=== PATIENT | female | born 1955 | race Caucasian/White ===

== ENCOUNTER 2019-07-29 10:37 | Inpatient (IN) | payer MEDICARE ==
[~2019-07-29] VITALS: Ht 188 cm; Wt 80.9 kg
[~2019-07-29 10:37] MED LIST: ASPIRIN81 MG; BUSPIRONE HCL5 MG PO; DIVALPROEX SOD250 MG; GLIPIZIDE5 MG PO; ISOSORBIDE MONO20 MG PO; LEVEMIR100 UNIT/1; LEXAPRO10 MG PO; LISINOPRIL10 MG PO; LORAZEPAM2 MG/1 M1 PO; METFORMIN HCL500 MG PO; METOPROLOL TART25 MG PO; NOVOLOG100 UNIT/1; OMEPRAZOLE40 MG; PRAVASTATIN SOD20 MG; RANEXA500 MG PO
[2019-07-29] MEDS ORDERED: PANTOPRAZOLE 40 MG 10ML VIAL IV STA (10:40)
[2019-07-29] MEDS ORDERED: ONDANSETRON HCL INJ 2MG/ML 2ML 2 MG/ML VIAL IV STA (10:40)
[2019-07-29] MEDS ORDERED: DIATRIZOATE MEGL/DIATRIZOA SOD 30 ML BTL PO ONE (10:52)
[2019-07-29 11:21] LABS: BASOPHILS % 0.2 % (0.0-1.0); HEMATOCRIT 43.6 % (34.2-44.1); HEMOGLOBIN 14.3 g/dL (12.0-16.0); LYMPHOCYTES # (AUTO) 1.7 (1.0-3.2); LYMPHOCYTES % 11.7 % (18.0-39.1); MEAN CORPUSCULAR HGB CONC 32.8 g/dL (31-35); MEAN CORPUSCULAR VOLUME 88.4 fL (81-99); MONOCYTES # (AUTO) 0.7 (0.2-0.8); MONOCYTES % 4.8 % (4.4-11.3); NEUTROPHILS % 82.8 % (38.7-80.0); PLATELET COUNT 265 x10e3/uL (140-360); RED BLOOD COUNT 4.93 x10e6/uL (3.6-5.1); RED CELL DISTRIBUTION WIDTH 13.9 % (11.7-14.4)
[2019-07-29 11:31] LABS: INR 0.93
[2019-07-29 11:32] LABS: CLARITY,URINE CLEAR (CLEAR); COLOR,URINE YELLOW (YELLOW); LEUKOCYTE ESTERASE ,URINE NEGATIVE (NEGATIVE); NITRITE,URINE NEGATIVE (NEGATIVE); PARTIAL THROMBOPLASTIN TIME 24.8 seconds (23.8-35.5); PROTEIN,URINE DIPSTICK 1+ (NEGATIVE)
[2019-07-29 11:33] LABS: BACTERIA,URINE RARE /HPF; BILIRUBIN,URINE NEGATIVE (NEGATIVE); EPITHELIAL CELLS,URINE FEW /LPF; KETONES,URINE 2+ (NEGATIVE); URINE UROBILINOGEN 0.2 mg/dL (0.2 - 1)
[2019-07-29 11:39] LABS: ALANINE AMINOTRANSFERASE 25 IU/L (0-55); ALBUMIN 4.2 g/dL (3.5-5.0); ALBUMIN/GLOBULIN RATIO 1.2 (0.8-2.0); ALKALINE PHOSPHATASE 121 IU/L (40-150); AMYLASE 23 U/L (25-125); ANION GAP 21.6 mmol/L (8-16); BLOOD UREA NITROGEN 15 mg/dL (7-26); BUN/CREATININE RATIO 18 (6-25); CALCIUM 9.9 mg/dL (8.4-10.2); CARBON DIOXIDE 26 mmol/L (22-29); CHLORIDE 98 mmol/L (98-107); CREATINE KINASE 29 IU/L (29-168); CREATININE, SERUM 0.83 mg/dL (0.57-1.11); EST GLOMERULAR FILTRATION RATE > 60 ML/MIN (60-); LIPASE 4 U/L (8-78); MAGNESIUM 1.5 MG/DL (1.3-2.1); POTASSIUM 3.6 mmol/L (3.5-5.1); SODIUM 142 mmol/L (136-145)
[2019-07-29 11:43] LABS: GLUCOSE 413 mg/dL (74-118)
[2019-07-29] MEDS ORDERED: SODIUM CHLORIDE 0.9% 1000ML 1,000 ML ONE (11:50)
[2019-07-29] MEDS ORDERED: INSULIN REGULAR, HUMAN 100 UNIT/1 ML 3ML VIAL IV ONE (12:00)
[2019-07-29 12:39] LABS: CREATINE KINASE MB < 1.00 ng/mL (0-4.3)
--- NOTE | 2019-07-29 13:20 | Diagnostic Imaging Report ---
CT BRAIN WO HISTORY: Nausea and vomiting COMPARISON: CTA of the head/neck 06/12/2019; MRI of the brain 06/11/2019 Technique: Noncontrast axial scans were obtained from skull base to the vertex. Coronal and sagittal reconstructions obtained from the axial data. One or more of the following dose reduction techniques were used: Automated exposure control, adjustment of the mA and/or kV according to patient size, and/or utilization of iterative reconstruction technique. DISCUSSION: Scalp/Skull: Unremarkable. Brain sulci: Mildly prominent. Ventricles: Compensatory dilatation. Extra-axial spaces: No masses or fluid collections. Carotid siphon calcifications are present. Parenchyma: Mild bilateral deep white matter hypodensity is likely chronic microvascular ischemic change. Old left striatocapsular and right putaminal lacunar infarcts are present. Otherwise, no masses, hemorrhage, or large vascular territory acute infarct. Dural sinuses: No abnormal densities. Sellar/Suprasellar region: Intact. Skull base: Intact. Incidental findings: None. IMPRESSION: 1. No acute intracranial abnormalities. 2. Mild supratentorial chronic microvascular ischemic change. Mild generalized cerebral volume loss. 3. 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 Signed by: Dr. Singh Merchant M.D. on 07/29/2019 1:18 PM
--- NOTE | 2019-07-29 13:28 | Diagnostic Imaging Report ---
CT of the abdomen and pelvis, with contrast. History: Nausea and vomiting. Comparison: None available. Technique: Multidetector CT scanning of the abdomen and pelvis was performed from the level of the lung bases to the inferior pubic rami after intravenous and oral administration of contrast. Coronal and sagittal multiplanar reformations were obtained. RADIATION DOSE: Total DLP: 721.23 mGy*cm Dose modulation, iterative reconstruction, and/or weight based adjustment of the mA/kV was utilized to reduce the radiation dose to as low as reasonably achievable. FINDINGS: The visualized lungs are unremarkable. Atherosclerotic calcifications are noted within the visualized coronary arteries. The visual as portions of the heart is otherwise unremarkable. The liver is normal in size and attenuation without evidence for focal abnormality. The gallbladder is surgically absent. There is no biliary ductal dilatation. There is a small hiatal hernia present. The stomach is otherwise unremarkable. The spleen, pancreas, and bilateral adrenal glands are unremarkable. The kidneys are normal in size and location and enhance symmetrically. There is no evidence for hydronephrosis. No ureteral dilatation or stone is identified. Phleboliths are noted within the pelvis. The uterus is surgically absent. No abnormal adnexal masses are identified. The abdominal aorta is normal course and caliber with atherosclerotic calcifications. The IVC is unremarkable. Diverticula are noted within the sigmoid colon with associated mild wall thickening best appreciated on coronal images. The remaining visualized loops of small and large bowel demonstrate no evidence of obstruction or inflammation. The appendix is not definitively visualized but there is no evidence of inflammation within its expected location within the right lower quadrant. There is no ascites or intraperitoneal free air. No abnormally enlarged lymph nodes are identified within the abdomen or pelvis. There are mild degenerative changes of the lower lumbar spine. The osseous structures otherwise demonstrate no evidence for acute fracture or destructive process. The extraperitoneal soft tissues are unremarkable. IMPRESSION: Diverticula noted within the sigmoid colon with mild associated wall thickening. Findings may reflect sequela of prior diverticulitis. An early, uncomplicated acute diverticulitis could have a similar appearance. No other acute abdominopelvic process identified. Signed by: Dr. Mihai Salgado MD on 07/29/2019 1:25 PM
[2019-07-29] MEDS: HYDRALAZINE HCL 20 MG/ML VIAL IV PRN ×2 (13:56→18:35)
[2019-07-29] MEDS ORDERED: DEXTROSE 50% SYRINGE 50 ML IV PRN (14:00)
[2019-07-29] MEDS ORDERED: SODIUM CHLORIDE 0.9% 50ML 50 ML ONE (14:04)
[2019-07-29] MEDS ORDERED: IOPAMIDOL 370 MG/ML 200 ML INFUS..BTL INJ ONE (14:04)
[2019-07-29] MEDS: SODIUM CHLORIDE 0.9% 1000ML 1,000 ML IV SCH ×2 (14:10→22:18)
[2019-07-29] MEDS: METRONIDAZOLE 500MG/NS 100ML 100 ML IV SCH ×2 (14:10→21:10)
[2019-07-29] MEDS: CIPROFLOXACIN 400 MG/D5W 200ML 200 ML IV SCH (15:05)
[2019-07-29] MEDS: ONDANSETRON HCL INJ 2MG/ML 2ML 2 MG/ML VIAL IV PRN (15:42)
[2019-07-29] MEDS: INSULIN REGULAR, HUMAN 100 UNIT/1 ML 3ML VIAL SQ SCH ×2 (16:22→22:17)
--- NOTE | 2019-07-29 18:48 | NUR ---
patient just arrived to the floor, sbasr report received from dio MENDES, patient awake, alert, no distress noted
[2019-07-29 20:00] VITALS: BP 180/91
--- NOTE | 2019-07-29 20:00 | NUR ---
PATIENT UNABLE TO ANSWER ALL QUESTIONS FOR ADMISSION, JUST STARES AT ME WHEN QUESTIONS ASKED, STATES "CALL MY DAUGHTER SHE KNOWS", ATTEMPTED TO CALL DAUGHTER AT NUMBER LISTED EMERGENCY CONTACT, NO ANSWER, WILL RETRY, FULL ASSESSMENT COMPLETED, NO WOUNDS NOTED, SKIN INTACT , IV LEFT AC PATENT FLUSHES WELL, DENIES PAIN AT THIS TIME, ORIENTED TO STAFF AND POLICIES, CALL LIGHT WITHIN REACH, PT STATES SHE USES [facility] AT HOME FOR AMBULATION, WALKER AT BEDSIDE FOR SAFETY
[2019-07-29 20:30] VITALS: BP 180/91
[2019-07-29 21:00] VITALS: BP 180/91
[2019-07-30] VITALS (10 sets, daily range): BP systolic 123–176; BP diastolic 78–94
[2019-07-30] MEDS: METRONIDAZOLE 500MG/NS 100ML 100 ML IV SCH ×4 (01:18→20:11)
[2019-07-30] MEDS: CIPROFLOXACIN 400 MG/D5W 200ML 200 ML IV SCH ×2 (01:26→15:00)
--- NOTE | 2019-07-30 04:42 | NUR ---
eMAR UPDATED AND ACKNOWLEDGE WITH NEW MEDIATIONS PER MD SUNG
[2019-07-30] MEDS: SODIUM CHLORIDE 0.9% 1000ML 1,000 ML IV SCH ×2 (05:24→20:11)
[2019-07-30 05:48] LABS: BASOPHILS % 0.2 % (0.0-1.0); EOSINOPHILS % 0.2 % (0.0-6.0); HEMATOCRIT 38.4 % (34.2-44.1); HEMOGLOBIN 12.9 g/dL (12.0-16.0); LYMPHOCYTES # (AUTO) 3.2 (1.0-3.2); LYMPHOCYTES % 26.2 % (18.0-39.1); MEAN CORPUSCULAR HEMOGLOBIN 29.1 pg (28-32); MEAN CORPUSCULAR HGB CONC 33.6 g/dL (31-35); MEAN CORPUSCULAR VOLUME 86.7 fL (81-99); MONOCYTES # (AUTO) 1.1 (0.2-0.8); MONOCYTES % 8.9 % (4.4-11.3); NEUTROPHILS # (AUTO) 7.7 (2.1-6.9); PLATELET COUNT 240 x10e3/uL (140-360); RED BLOOD COUNT 4.43 x10e6/uL (3.6-5.1); RED CELL DISTRIBUTION WIDTH 14.1 % (11.7-14.4)
[2019-07-30 06:10] LABS: ANION GAP 13.8 mmol/L (8-16); BLOOD UREA NITROGEN 18 mg/dL (7-26); BUN/CREATININE RATIO 23 (6-25); CARBON DIOXIDE 26 mmol/L (22-29); CHLORIDE 104 mmol/L (98-107); CREATININE, SERUM 0.77 mg/dL (0.57-1.11); EST GLOMERULAR FILTRATION RATE > 60 ML/MIN (60-); GLUCOSE 156 mg/dL (74-118); SODIUM 141 mmol/L (136-145)
[2019-07-30 06:27] LABS: POTASSIUM 2.8 mmol/L (3.5-5.1)
--- NOTE | 2019-07-30 06:31 | NUR ---
LAB REPORTING POTASSIUM LEVEL 2.8, MD SUNG PAGED BY SERVICE REP OTTO, AWAITING ORDERS
--- NOTE | 2019-07-30 06:50 | NUR ---
REPORT GIVEN TO CINTHYA BETTENCOURT AT BEDSIDE, ADVISED OF CRITICAL LAB POTASSIUM 2.8, NOTIFIED THAT MD WAS NOTIFIED AND ORDERS WERE GIVEN AND CARRIED OUT, PATIENT SEEN SLEEPING NO DISTRESS CALL LIGHT WITHIN REACH
[2019-07-30] MEDS: INSULIN REGULAR, HUMAN 100 UNIT/1 ML 3ML VIAL SQ SCH ×4 (07:21→21:00)
[2019-07-30] MEDS: METFORMIN HCL 500 MG TAB PO SCH ×2 (07:59→16:58)
[2019-07-30] MEDS: PANTOPRAZOLE SOD 40 MG TABEC PO SCH (08:00)
[2019-07-30] MEDS: PRAVASTATIN 20 MG TAB PO SCH (08:00)
[2019-07-30] MEDS: ISOSORBIDE MONONITRATE 20 MG TAB PO SCH (08:00)
[2019-07-30] MEDS: METOPROLOL TARTRATE 25 MG TAB PO SCH ×2 (08:00→17:03)
[2019-07-30] MEDS ORDERED: POTASSIUM CHLORIDE 10MEQ EA PO ONE (09:00)
[2019-07-30] MEDS ORDERED: LISINOPRIL 10 MG TAB PO SCH (09:00)
[2019-07-30] MEDS: HYDRALAZINE HCL 20 MG/ML VIAL IV PRN (17:03)
--- NOTE | 2019-07-30 19:19 | NUR ---
BSSR RECEIVED FROM CINTHYA BETTENCOURT PATIENT AWAKE ALERT, REPORTED PT EXPERIENCE MULTIPLE EPISODES OF N/V, PRN IV MED GIVEN, NO NAUSEA NOTED AT SHIFT CHANGE, CALL LIGHT WITHIN REACH WILL CONTINUE TO MONITOR
[2019-07-30] MEDS: ONDANSETRON HCL INJ 2MG/ML 2ML 2 MG/ML VIAL IV PRN (20:11)
[2019-07-30] MEDS: DIVALPROEX SODIUM 250 MG TAB...DR PO SCH (21:00)
[2019-07-30] MEDS: BUSPIRONE HCL 5 MG TAB PO SCH (21:00)
[2019-07-30] MEDS: PROMETHAZINE 25MG/ NS 50ML (IV) IV PRN (22:32)
[2019-07-31] VITALS (9 sets, daily range): BP systolic 157–182; BP diastolic 74–104
[2019-07-31] MEDS: HYDRALAZINE HCL 20 MG/ML VIAL IV PRN ×2 (02:10→16:02)
[2019-07-31] MEDS: PROMETHAZINE 25MG/ NS 50ML (IV) IV PRN ×3 (02:17→13:29)
[2019-07-31] MEDS: METRONIDAZOLE 500MG/NS 100ML 100 ML IV SCH ×4 (03:04→20:47)
[2019-07-31] MEDS: CIPROFLOXACIN 400 MG/D5W 200ML 200 ML IV SCH (04:00)
[2019-07-31 05:12] LABS: BASOPHILS % 0.3 % (0.0-1.0); EOSINOPHILS % 0.1 % (0.0-6.0); HEMATOCRIT 40.9 % (34.2-44.1); HEMOGLOBIN 13.8 g/dL (12.0-16.0); LYMPHOCYTES # (AUTO) 2.3 (1.0-3.2); LYMPHOCYTES % 19.8 % (18.0-39.1); MEAN CORPUSCULAR HEMOGLOBIN 29.3 pg (28-32); MEAN CORPUSCULAR HGB CONC 33.7 g/dL (31-35); MEAN CORPUSCULAR VOLUME 86.8 fL (81-99); MONOCYTES # (AUTO) 0.9 (0.2-0.8); MONOCYTES % 7.5 % (4.4-11.3); NEUTROPHILS # (AUTO) 8.3 (2.1-6.9); NEUTROPHILS % 71.5 % (38.7-80.0); PLATELET COUNT 240 x10e3/uL (140-360); RED BLOOD COUNT 4.71 x10e6/uL (3.6-5.1); RED CELL DISTRIBUTION WIDTH 13.9 % (11.7-14.4)
--- NOTE | 2019-07-31 05:20 | Progress Note ---
DATE: 07/31/2019 SUBJECTIVE: The patient states her pain is doing better overall, but still having a lot of nausea and vomiting despite multiple changes in medication. OBJECTIVE: VITAL SIGNS: Temperature 97.4, pulse 91, blood pressure 179/96, and sats 97%. GENERAL: No apparent distress, lying in bed. NECK: Supple. CARDIOVASCULAR: Regular rate and rhythm. LUNGS: Clear to auscultation bilaterally. ABDOMEN: Good bowel sounds. Soft and nontender. No distention. No peritoneal signs. EXTREMITIES: No clubbing or cyanosis. NEUROLOGIC: Moves all extremities x4. ASSESSMENT AND PLAN: 1. Nausea and vomiting. We will continue with current care. We will go ahead and consult Gastroenterology for evaluation. 2. Diverticulitis. Continue with her antibiotics. 3. Urinary tract infection. Continue with antibiotics and wait for culture data to come back. 4. Hypertension. We will continue with current care and increase her lisinopril to 20 mg a day. 5. Hypokalemia. We will recheck blood tests. 6. Leukocytosis. We will recheck her lab tests. 7. Hyperlipidemia. Continue with her cholesterol medicine. 8. Diabetes. Continue with current care and monitoring. Please see hospital chart for full details. MD ALBA Downey/DELLA /[id number]
[2019-07-31 05:39] LABS: ALANINE AMINOTRANSFERASE 17 IU/L (0-55); ALBUMIN 3.6 g/dL (3.5-5.0); ALBUMIN/GLOBULIN RATIO 1.3 (0.8-2.0); ALKALINE PHOSPHATASE 74 IU/L (40-150); ANION GAP 17.5 mmol/L (8-16); BLOOD UREA NITROGEN 13 mg/dL (7-26); BUN/CREATININE RATIO 20 (6-25); CALCIUM 8.9 mg/dL (8.4-10.2); CARBON DIOXIDE 19 mmol/L (22-29); CHLORIDE 99 mmol/L (98-107); CREATININE, SERUM 0.65 mg/dL (0.57-1.11); EST GLOMERULAR FILTRATION RATE > 60 ML/MIN (60-); GLUCOSE 252 mg/dL (74-118); MAGNESIUM 1.3 MG/DL (1.3-2.1); POTASSIUM 3.5 mmol/L (3.5-5.1); SODIUM 132 mmol/L (136-145)
--- NOTE | 2019-07-31 06:45 | NUR ---
Spoke with answering service ( [employer]) regarding new consult for diverticulitis, nausea, vomiting Addendum: 07/31/19 at 0648 by Malinda Arizmendi RN Spoke with answering service for Dr Maradiaga ( Dr [place] state federal relations deputy director)
--- NOTE | 2019-07-31 07:15 | NUR ---
Bedside report and walking rounds completed with oncoming nurse. Patient stable and in bed, no issues or concerns noted. Call light within reaching.
[2019-07-31] MEDS: PRAVASTATIN 20 MG TAB PO SCH (08:31)
[2019-07-31] MEDS: SODIUM CHLORIDE 0.9% 1000ML 1,000 ML IV SCH ×2 (08:31→21:51)
[2019-07-31] MEDS: METOPROLOL TARTRATE 25 MG TAB PO SCH ×2 (08:32→16:17)
[2019-07-31] MEDS: METFORMIN HCL 500 MG TAB PO SCH ×2 (08:32→16:16)
[2019-07-31] MEDS: INSULIN REGULAR, HUMAN 100 UNIT/1 ML 3ML VIAL SQ SCH ×4 (08:32→20:58)
[2019-07-31] MEDS: ISOSORBIDE MONONITRATE 20 MG TAB PO SCH (08:32)
[2019-07-31] MEDS: LISINOPRIL 10 MG TAB PO SCH (08:41)
[2019-07-31] MEDS: PANTOPRAZOLE SOD 40 MG TABEC PO SCH (08:41)
--- NOTE | 2019-07-31 13:00 | NUR ---
Received patient from [facility], a/ox3, diverticulitis and c/o nausea, medicated with [place] per orders at this time and abx, IV line in place, call light within reach, safety maintained, will monitor.
[2019-07-31] MEDS: ACETAMINOPHEN 325 MG TAB PO PRN (16:42)
--- NOTE | 2019-07-31 17:56 | NUR ---
Patient with elevated BP, medicated as per orders, in bed, stable, IV fluids in place, tolerated GI soft diet, some nausea but not significant, call light within reach, will monitor.
--- NOTE | 2019-07-31 18:55 | NUR ---
WALKING ROUNDS PERFORMED, RECEIVED PT LAYING SEMI FOWLERS IN BED, AAOX3, RR EVEN AND NON-LABORED, ON ROOM AIR. PT REPORTS PAIN TO ANTERIOR ABD. LEFT PT LAYING SEMI FOWLERS IN BED, BED IN LOW LOCKED POSITION, SIDE RAILS UPX2, CALL LIGHT AND PHONE WITHIN REACH.
[2019-07-31] MEDS: DIVALPROEX SODIUM 250 MG TAB...DR PO SCH (20:49)
[2019-07-31] MEDS: BUSPIRONE HCL 5 MG TAB PO SCH (20:49)
[2019-07-31] MEDS: CIPROFLOXACIN 500 MG TAB PO SCH (20:49)
[2019-08-01] VITALS (8 sets, daily range): BP systolic 134–178; BP diastolic 77–93
--- NOTE | 2019-08-01 00:44 | Consultation ---
DATE OF CONSULTATION: 07/31/2019 GI Consult Note REASON FOR CONSULT: Acute sigmoid diverticulitis. HISTORY OF PRESENTING ILLNESS: 63-year-old very pleasant white female with past medical history of type 2 diabetes and hypertension, who got admitted with acute onset of left lower quadrant pain for last 3-4 days. In the emergency room, she was afebrile. Hemodynamically stable. CT scan of the abdomen with IV and oral contrast showed sigmoid diverticulitis with surrounding wall thickening consistent with acute diverticulitis. She was admitted to the floor. Currently getting IV fluid, IV antibiotics. The patient's white count, which was elevated to 14.50 on admission has come down to 11.52. The patient still continues to have some nausea without any vomiting. She is not feeling hungry. She is tolerating liquids. The patient is not sure if she has ever had attack of diverticulitis like this in the past. She could recall that she has had a colonoscopy more than 5 to 7 years ago. REVIEW OF SYSTEMS: Twelve point system reviewed, symptomatology is limited to GI system. PAST MEDICAL HISTORY: Type 2 diabetes, hypertension, and hyperlipidemia. PAST SURGICAL HISTORY: Colonoscopy and cholecystectomy. FAMILY HISTORY: Noncontributory. SOCIAL HISTORY: No smoking, alcohol, or any illicit drug use. ALLERGIES: CELECOXIB. HOME MEDICATIONS: Buspirone, divalproex, glipizide, insulin, isosorbide mononitrate, lisinopril, lorazepam, metformin, metoprolol, omeprazole, and pravastatin. INPATIENT MEDICATIONS: List reviewed. She is getting intravenous ciprofloxacin and metronidazole along with other supportive medications. PHYSICAL EXAMINATION: VITAL SIGNS: Temperature 98.6, pulse 91, respirations 18, blood pressure 168/95 to 182/104, and oxygen saturation 97% on room air. GENERAL: Not in any apparent distress. HEENT: Oral mucosa is moist. Anicteric sclerae. CVS: S1, S2 regular. LUNGS: Bilaterally grossly clear. ABDOMEN: Soft. Palpable left lower quadrant tenderness with some guarding without any rebound. No palpable mass or hernia. Positive bowel sounds. EXTREMITIES: Warm. Trace bilateral leg edema. LABORATORY DATA: WBC has come down to 11.52 from 14.50, hemoglobin 13.8, hematocrit 40.9, MCV 86.8, and platelet count 240. Sodium 132, potassium 3.5, chloride 99, bicarb 19, BUN 13, creatinine 0.65, and glucose 252. Liver enzymes normal. CT of the brain, no acute intracranial abnormalities. CT of the abdomen and pelvis with IV and oral contrast showed diverticula noted within the sigmoid colon with mild associated wall thickening. Finding may reflect sequelae of prior diverticulitis. An early uncomplicated acute diverticulitis could have similar appearance. IMPRESSION: Acute uncomplicated sigmoid diverticulitis. PLAN: Agree with present medical management of IV fluids, IV antibiotic. White count is slowly normalizing. Abdominal exam is still showing some left lower quadrant tenderness. Therefore, we will continue IV antibiotic for now. Switch to oral antibiotic once white count is normalized and abdominal tenderness is resolved. Continue low residue diet. The patient would need colonoscopy in next 2-3 months after complete resolution of diverticulitis. I thank Dr. Madrigal for allowing me to participate in the care of this patient. Jose Naranjo MD SA/DELLA /[id number]
[2019-08-01] MEDS: METRONIDAZOLE 500MG/NS 100ML 100 ML IV SCH ×4 (02:03→21:27)
[2019-08-01] MEDS: HYDRALAZINE HCL 20 MG/ML VIAL IV PRN ×2 (02:03→21:27)
[2019-08-01] MEDS: PROMETHAZINE 25MG/ NS 50ML (IV) IV PRN ×3 (03:30→17:49)
--- NOTE | 2019-08-01 07:00 | NUR ---
RECEIVED PATIENT ASLEEP NO S/S OF DISTRESS. BED LOW, WHEELS LOCKED, SIDE RAILS X2. CALL LIGHT IN REACH WILL CONTINUE TO MONITOR PATIENT.
[2019-08-01] MEDS: INSULIN REGULAR, HUMAN 100 UNIT/1 ML 3ML VIAL SQ SCH ×4 (07:30→21:30)
--- NOTE | 2019-08-01 07:40 | Progress Note ---
DATE: 08/01/2019 SUBJECTIVE: A 63-year-old female, who comes in with diverticulitis. The patient is currently feeling better. Nausea is still present, however, abdominal pain is present, still better. No chest pains. No shortness of breath. The patient has not been walking around. MEDICATIONS: Currently, the patient is taking as needed, BuSpar, ciprofloxacin, hydralazine as needed, insulin regular, metformin, metoprolol, Flagyl, and pantoprazole. OBJECTIVE: VITAL SIGNS: Temperature is 98.6, pulse of 100, respirations of 20, blood pressure is 134/91, pulse oximetry of 98% on room air. HEENT: Normocephalic and atraumatic. The patient is grimacing in pain. CVS: S1 and S2 normal. Regular rate and rhythm. ABDOMEN: Tender in the left lower quadrant. EXTREMITIES: No clubbing, no cyanosis, no edema. LABORATORY VALUES: White count is 11.52 yesterday, hemoglobin of 13, hematocrit of 40.9, no left shift present. Sodium is 132, potassium is 3.5, BUN of 13, creatinine 0.65, glucose has been running in the 230s. IMAGING: Brain CT showed old left striatocapsular and putaminal lacunar infarcts and abdominal CT shows diverticulitis or early diverticulitis. ASSESSMENT: Ms. Mcguire is a 63-year-old female with acute sigmoid diverticulitis. Additional diagnoses includes hypertension, hyperlipidemia, diabetes mellitus, uncontrolled, and hyponatremia. PLAN: Continue IV fluids. Continue IV antibiotics. White count is better. The patient will continue to be on IV antibiotics today and she is tolerating a soft GI diet. We will continue same. Check her BMP tomorrow. Further recommendation per clinical course. GI is following the patient. MD SAMANTA Babcock/IRISL /[id number]
[2019-08-01] MEDS: CIPROFLOXACIN 500 MG TAB PO SCH ×2 (08:59→21:27)
[2019-08-01] MEDS: PANTOPRAZOLE SOD 40 MG TABEC PO SCH (08:59)
[2019-08-01] MEDS: LISINOPRIL 10 MG TAB PO SCH (08:59)
[2019-08-01] MEDS: SODIUM CHLORIDE 0.9% 1000ML 1,000 ML IV SCH (08:59)
[2019-08-01] MEDS: METOPROLOL TARTRATE 25 MG TAB PO SCH ×2 (08:59→17:08)
[2019-08-01] MEDS: METFORMIN HCL 500 MG TAB PO SCH ×2 (08:59→17:08)
[2019-08-01] MEDS: ISOSORBIDE MONONITRATE 20 MG TAB PO SCH (08:59)
[2019-08-01] MEDS: PRAVASTATIN 20 MG TAB PO SCH (08:59)
[2019-08-01] MEDS: ACETAMINOPHEN 325 MG TAB PO PRN (09:05)
--- NOTE | 2019-08-01 11:15 | NUR ---
PATIENT A/O X3, EVEN RESPIRATIONS ON RA. NO SIGNS OF DISTRESS. DIAPER IN PLACE, PATIENT INCONTINENT. LEFT AC 20 GAUGE WITH NS @ 75 CC/HR. ABDOMINAL PAIN 10/10 THIS MORNING. PATIENT RECEIVED TYLENOL, PAIN 6/10 ON REASSESSMENT. PATIENT NEEDS ASSISTANCE WITH AMBULATION. CALL LIGHT IN REACH WILL CONTINUE TO MONITOR PATIENT.
--- NOTE | 2019-08-01 19:00 | NUR ---
Received patient from day nurse, patient is stable and in bed, safety and fall precautions maintained as per hospital protocol: bed in lowest position and locked, needed items close to patient, patient encouraged and instructed to call for help at all times, patient is currently stable, will continue to monitor.
[2019-08-01] MEDS: DIVALPROEX SODIUM 250 MG TAB...DR PO SCH (21:27)
[2019-08-01] MEDS: BUSPIRONE HCL 5 MG TAB PO SCH (21:27)
--- NOTE | 2019-08-01 22:08 | Progress Note ---
DATE: 08/01/2019 GI Progress Report SUBJECTIVE: The patient reports improvement in left lower abdominal pain. Tolerating GI soft diet. She has not had any bowel movement today. REVIEW OF SYSTEMS: GENERAL: No fever or chills. CVS: No chest pain or palpitation. RESPIRATORY: No cough or expectoration. MEDICATION: Metronidazole 500 mg IV every 8 hours, normal saline at 75 mL an hour, acetaminophen 650 mg p.o. every 6 hours as needed, buspirone 5 mg daily, ciprofloxacin 500 mg p.o. every 12 hours, dive, Depakote 250 mg at bedtime, hydralazine 10 mg IV every 4 hours p.r.n., insulin regular subcu per sliding scale. Isosorbide mononitrate 20 mg daily. Lisinopril 20 mg daily. Metformin 500 mg twice daily. Metoprolol 25 mg twice daily, Zofran 4 mg IV every 4 hours as needed, pantoprazole 40 mg daily, pravastatin 20 mg daily, promethazine 25 mg IV every 4 hours as needed. PHYSICAL EXAMINATION: VITAL SIGNS: Temperature 99, pulse 86, respirations 18, blood pressure 165/93, oxygen saturation 98% on room air. GENERAL: Not in any apparent distress. HEENT: Oral mucosa is moist. Anicteric sclerae. ABDOMEN: Soft, nondistended. Mild left lower quadrant tenderness without rebound, rigidity, or any guarding positive bowel sounds. LABORATORY DATA: White count has come down to 11.52 from 12.04, hemoglobin 13.8, hematocrit 40.9, platelet count 240. Sodium 132, potassium 3.5, chloride 99, bicarb 19, BUN 13, creatinine 0.65. Liver enzymes normal. IMPRESSION: Acute sigmoid diverticulitis without any local complication such as perforation or any abscess. PLAN: Continue antibiotic, low residue diet, monitor clinically. Supportive care. Jose Naranjo MD SA/DELLA /[id number]
[2019-08-02] VITALS (8 sets, daily range): BP systolic 110–180; BP diastolic 57–92
[2019-08-02] MEDS: SODIUM CHLORIDE 0.9% 1000ML 1,000 ML IV SCH ×2 (00:31→18:13)
[2019-08-02] MEDS: METRONIDAZOLE 500MG/NS 100ML 100 ML IV SCH ×4 (02:45→20:25)
[2019-08-02 05:44] LABS: BASOPHILS % 0.2 % (0.0-1.0); EOSINOPHILS # (AUTO) 0.1 (0.0-0.4); EOSINOPHILS % 0.5 % (0.0-6.0); HEMATOCRIT 40.2 % (34.2-44.1); HEMOGLOBIN 13.5 g/dL (12.0-16.0); LYMPHOCYTES # (AUTO) 3.5 (1.0-3.2); LYMPHOCYTES % 32.7 % (18.0-39.1); MEAN CORPUSCULAR HEMOGLOBIN 29.2 pg (28-32); MEAN CORPUSCULAR HGB CONC 33.6 g/dL (31-35); MONOCYTES % 9.3 % (4.4-11.3); NEUTROPHILS # (AUTO) 6.1 (2.1-6.9); NEUTROPHILS % 56.7 % (38.7-80.0); PLATELET COUNT 218 x10e3/uL (140-360); RED BLOOD COUNT 4.62 x10e6/uL (3.6-5.1); RED CELL DISTRIBUTION WIDTH 13.8 % (11.7-14.4)
[2019-08-02 06:08] LABS: ANION GAP 14.2 mmol/L (8-16); BLOOD UREA NITROGEN 11 mg/dL (7-26); BUN/CREATININE RATIO 17 (6-25); CALCIUM 8.6 mg/dL (8.4-10.2); CARBON DIOXIDE 23 mmol/L (22-29); CHLORIDE 104 mmol/L (98-107); CREATININE, SERUM 0.66 mg/dL (0.57-1.11); EST GLOMERULAR FILTRATION RATE > 60 ML/MIN (60-); GLUCOSE 149 mg/dL (74-118); POTASSIUM 3.2 mmol/L (3.5-5.1); SODIUM 138 mmol/L (136-145)
--- NOTE | 2019-08-02 06:50 | NUR ---
Received bedside shift report from off going nurse. Patient is in stable condition, no acute distress noted. Call light within reach. Bed in the lowest position.
--- NOTE | 2019-08-02 07:05 | NUR ---
Patient endorsed to next shift for continuity of care.
[2019-08-02] MEDS: PROMETHAZINE 25MG/ NS 50ML (IV) IV PRN ×2 (07:30→16:43)
[2019-08-02] MEDS ORDERED: POTASSIUM CHLORIDE 20 MEQ TAB CR PO STA (07:48)
[2019-08-02] MEDS: INSULIN REGULAR, HUMAN 100 UNIT/1 ML 3ML VIAL SQ SCH ×4 (08:30→20:34)
[2019-08-02] MEDS: CIPROFLOXACIN 500 MG TAB PO SCH ×2 (08:41→20:25)
[2019-08-02] MEDS: ISOSORBIDE MONONITRATE 20 MG TAB PO SCH (08:41)
[2019-08-02] MEDS: METFORMIN HCL 500 MG TAB PO SCH ×2 (08:41→16:20)
[2019-08-02] MEDS: PRAVASTATIN 20 MG TAB PO SCH (08:42)
[2019-08-02] MEDS: METOPROLOL TARTRATE 25 MG TAB PO SCH ×2 (08:42→16:21)
[2019-08-02] MEDS: PANTOPRAZOLE SOD 40 MG TABEC PO SCH (08:42)
[2019-08-02] MEDS: LISINOPRIL 10 MG TAB PO SCH (08:42)
[2019-08-02] MEDS: ACETAMINOPHEN 325 MG TAB PO PRN (08:42)
--- NOTE | 2019-08-02 10:59 | Progress Note ---
DATE: 08/02/2019 SUBJECTIVE: A 63-year-old female came in with acute diverticulitis, leukocytosis feeling better except for nausea, nausea continues. The patient is on pantoprazole and also on Zofran as needed. No chest pain. No shortness of breath. Abdominal pain is better. Has not been walker around. PHYSICAL EXAMINATION: VITAL SIGNS: Temperature is 98.2, T-max of 99.0 at 2100. Otherwise, pulse of 98, respirations of 18, blood pressure is 155/92, pulse oximetry of 98%. HEENT: Normocephalic and atraumatic. Pupils reactive. CVS: S1 and S2 normal. Regular rate and rhythm. ABDOMEN: Still tenderness present in the left lower quadrant minimized though. EXTREMITIES: No clubbing, no cyanosis, no edema. LABORATORY VALUES: White count is down to 10.82, potassium of 3.2. Microbiology, urine culture grew E coli. Currently, the patient is on Cipro and metronidazole and E coli and Streptococcus viridans sepsis sensitive to Cipro. Plan, continue medications. ASSESSMENT: 1. Diverticulitis. Continue same program with antibiotics. 2. Streptococcus viridans urinary tract infection. Continue with the current medication regimen. Further recommendation per clinical course. Continue with her home medications and also replace potassium today. MD SAMANTA Babcock/MODL /[id number]
--- NOTE | 2019-08-02 19:23 | NUR ---
Bedside shift report given to oncoming nurse. Patient is resting in bed, no acute distress noted. Call light within reach. Bed in the lowest position.
[2019-08-02] MEDS: BUSPIRONE HCL 5 MG TAB PO SCH (20:25)
[2019-08-02] MEDS: DIVALPROEX SODIUM 250 MG TAB...DR PO SCH (20:25)
--- NOTE | 2019-08-02 23:12 | Progress Note ---
DATE: 08/02/2019 GI Progress Report SUBJECTIVE: The patient reports improvement in abdominal pain. Tolerating oral diet. Complaining about some sore throat. REVIEW OF SYSTEMS: GENERAL: No fever or chills, admits to some weakness. CVS: No chest pain or palpitation. RESPIRATORY: Admits to some cough and sore throat. No expectoration. No shortness of breath. MEDICATIONS: Regular insulin as per sliding scale, ciprofloxacin 500 mg p.o. twice daily, Depakote 250 mg p.o. at bedtime, buspirone 5 mg p.o. daily, metronidazole 500 mg IV four times daily, normal saline at 75 mL an hour, metoprolol 25 mg twice daily, metformin 500 mg twice daily, lisinopril 20 mg daily, acetaminophen 650 mg p.o. q.6 hours as needed, pantoprazole 40 mg p.o. daily, isosorbide mononitrate 20 mg p.o. daily, hydralazine 10 mg IV q.4 hours as needed, and Zofran 4 mg IV q.4 hours as needed. OBJECTIVE: VITAL SIGNS: Temperature 97.9, pulse 83, respirations 16, blood pressure 119/57, oxygen saturation 95% on room air. GENERAL: Not in any acute distress. HEENT: Oral mucosa is moist. ABDOMEN: Soft. Mild. Left lower quadrant tenderness on deep palpation. No rebound, rigidity, or guarding. Positive bowel sounds. LABORATORY DATA: WBC has come down to 10.82 from 11.52, hemoglobin 13.5, hematocrit 40.2, and platelet count 218. Sodium 138, potassium 3.2, chloride 104, bicarb 23, BUN 11, creatinine 0.66. ASSESSMENT: 1. Acute left-sided diverticulitis, it is uncomplicated. She is responding very well with current antibiotic therapy. White count has also normalized. 2. Constipation. 3. Mild hypokalemia. 4. Sore throat. PLAN: Continue present antibiotic, IV fluids. Add bowel regimen for constipation. Replete potassium. We will defer the management of sore throat and cough to primary team. Jose Naranjo MD SA/DELLA /[id number]
[2019-08-03] VITALS (8 sets, daily range): BP systolic 123–171; BP diastolic 71–89
--- NOTE | 2019-08-03 00:54 | NUR ---
resting comfortably, resp unlabored call light in reach. will cont to monitor.
[2019-08-03] MEDS: METRONIDAZOLE 500MG/NS 100ML 100 ML IV SCH ×4 (02:05→20:00)
[2019-08-03] MEDS: SODIUM CHLORIDE 0.9% 1000ML 1,000 ML IV SCH (03:46)
[2019-08-03 05:55] LABS: BASOPHILS % 0.4 % (0.0-1.0); EOSINOPHILS # (AUTO) 0.1 (0.0-0.4); EOSINOPHILS % 0.9 % (0.0-6.0); HEMATOCRIT 36.9 % (34.2-44.1); LYMPHOCYTES # (AUTO) 3.2 (1.0-3.2); LYMPHOCYTES % 33.1 % (18.0-39.1); MEAN CORPUSCULAR HEMOGLOBIN 29.1 pg (28-32); MEAN CORPUSCULAR HGB CONC 32.5 g/dL (31-35); MEAN CORPUSCULAR VOLUME 89.6 fL (81-99); MONOCYTES % 9.8 % (4.4-11.3); NEUTROPHILS # (AUTO) 5.4 (2.1-6.9); NEUTROPHILS % 54.9 % (38.7-80.0); PLATELET COUNT 180 x10e3/uL (140-360); RED BLOOD COUNT 4.12 x10e6/uL (3.6-5.1); RED CELL DISTRIBUTION WIDTH 13.9 % (11.7-14.4)
[2019-08-03 06:18] LABS: ANION GAP 10.7 mmol/L (8-16); BLOOD UREA NITROGEN 11 mg/dL (7-26); BUN/CREATININE RATIO 18 (6-25); CARBON DIOXIDE 24 mmol/L (22-29); CHLORIDE 109 mmol/L (98-107); CREATININE, SERUM 0.62 mg/dL (0.57-1.11); EST GLOMERULAR FILTRATION RATE > 60 ML/MIN (60-); GLUCOSE 132 mg/dL (74-118); POTASSIUM 3.7 mmol/L (3.5-5.1); SODIUM 140 mmol/L (136-145)
--- NOTE | 2019-08-03 06:59 | NUR ---
Report given to oncoming Nurse, walking rounds complete. Pt stable at this time.
--- NOTE | 2019-08-03 07:00 | NUR ---
BEDSIDE SHIFT REPORT RECEIVED PT IN STABLE CONDITION, DENIES PAIN AT THIS TIME, UPDATED ON POC VOICED UNDERSTANDING, CALL LIGHT IN REACH WILL CONTINUE TO MONITOR
[2019-08-03] MEDS: INSULIN REGULAR, HUMAN 100 UNIT/1 ML 3ML VIAL SQ SCH ×4 (07:30→21:00)
[2019-08-03] MEDS: LISINOPRIL 10 MG TAB PO SCH (08:40)
[2019-08-03] MEDS: PRAVASTATIN 20 MG TAB PO SCH (08:40)
[2019-08-03] MEDS: PANTOPRAZOLE SOD 40 MG TABEC PO SCH (08:40)
[2019-08-03] MEDS: CIPROFLOXACIN 500 MG TAB PO SCH ×2 (08:40→21:00)
[2019-08-03] MEDS: ISOSORBIDE MONONITRATE 20 MG TAB PO SCH (08:41)
[2019-08-03] MEDS: METFORMIN HCL 500 MG TAB PO SCH ×2 (08:41→17:11)
[2019-08-03] MEDS: METOPROLOL TARTRATE 25 MG TAB PO SCH ×2 (08:42→17:12)
[2019-08-03] MEDS: POLYETHYLENE GLYCOL 3350 17 GM PACK PO SCH (08:42)
--- NOTE | 2019-08-03 09:49 | Progress Note ---
DATE: 08/03/2019 SUBJECTIVE: The patient is here for acute diverticulitis, sigmoid. The patient is feeling better. No chest pain. No shortness of breath. Bowel movements negative at this time, but pain is better. The patient is terribly weak, cannot move to the bathroom by herself, feels very weak and tired, and cannot make herself to go to the bathroom without help. OBJECTIVE: VITAL SIGNS: Temperature is 98, pulse of 99, and blood pressure is 171/89. HEENT: Normocephalic and atraumatic. Pupils are reactive to light and accommodation. CVS: S1 and S2 normal. Regular rate and rhythm. ABDOMEN: Slightly tender in left lower quadrant. EXTREMITIES: No clubbing, no cyanosis, no edema. LABORATORY VALUES: White count is normalized to 9.77. Chemistries all within normal limits. ASSESSMENT: Ms. Jamila Mcguire with: 1. Acute diverticulitis. 2. Leukocytosis. 3. Fatigue. 4. History of bipolar disease. 5. Hypertension. 6. Hyperlipidemia. 7. Diabetes mellitus. PLAN: Physical therapy today. The patient is better, can be discharged on home health. Continue with antibiotics, will be discharged on p.o. antibiotics. Further recommendation per clinical course and also depending on GI. MD SAMANTA Babcock/IRISL /[id number]
[2019-08-03] MEDS: ACETAMINOPHEN 325 MG TAB PO PRN (11:00)
[2019-08-03] MEDS: ONDANSETRON HCL INJ 2MG/ML 2ML 2 MG/ML VIAL IV PRN ×3 (13:25→22:33)
--- NOTE | 2019-08-03 19:05 | NUR ---
BEDSIDE REPORT RECEIVED,PT IN BED, IV INFUSING, TABLE WITHIN REACH, CALL LIGHT IN REACH, NO DISTRESS NOTED
--- NOTE | 2019-08-03 20:00 | NUR ---
INITIAL ASSESSMENT COMPLETE, PT IN BED, NO C/O PAIN AT THIS TIME, VS WNL, CALL LIGHT IN REACH, DR BECKER HERE TO SEE PT, PT TO GO HOME ON HOME HEALTH, NO OTHER NEEDS AT THIS TIME, WILL CONTINUE TO MONITOR
[2019-08-03] MEDS: BUSPIRONE HCL 5 MG TAB PO SCH (21:00)
[2019-08-03] MEDS: DIVALPROEX SODIUM 250 MG TAB...DR PO SCH (21:00)
--- NOTE | 2019-08-03 21:35 | NUR ---
PT UP FOR SHOWER AND LINEN CHANGE, INCONTINENT OF STOOL AND URINE, NEW DIAPER, SKIN INTACT, PT BACK TO BED, CALL LIGHT IN REACH, NO OTHER NEEDS, BED ALARM ON PT, VS WNL, WILL CONTINUE TO MONITOR
[2019-08-04 00:15] VITALS: BP 162/72
[2019-08-04] MEDS: METRONIDAZOLE 500MG/NS 100ML 100 ML IV SCH ×2 (01:57→08:00)
[2019-08-04 04:04] VITALS: BP 141/77
--- NOTE | 2019-08-04 04:20 | NUR ---
PT IN BED, ASLEEP, RESPIRATIONS EVEN AND UNLABORED, CALL LIGHT IN REACH, IV INFUSING, NO DISTRESS NOTED, VS WNL
--- NOTE | 2019-08-04 07:28 | NUR ---
Received patient and a/ox3, no distress, no c/o N/V and call light within reach, denies pains, will monitor.
[2019-08-04] MEDS: INSULIN REGULAR, HUMAN 100 UNIT/1 ML 3ML VIAL SQ SCH ×2 (07:30→11:30)
[2019-08-04 08:19] VITALS: BP 173/80
[2019-08-04] MEDS: CIPROFLOXACIN 500 MG TAB PO SCH (08:33)
[2019-08-04] MEDS: ISOSORBIDE MONONITRATE 20 MG TAB PO SCH (08:33)
[2019-08-04] MEDS: METFORMIN HCL 500 MG TAB PO SCH (08:33)
[2019-08-04] MEDS: PANTOPRAZOLE SOD 40 MG TABEC PO SCH (08:34)
[2019-08-04] MEDS: PRAVASTATIN 20 MG TAB PO SCH (08:34)
[2019-08-04] MEDS: METOPROLOL TARTRATE 25 MG TAB PO SCH (08:34)
[2019-08-04] MEDS: LISINOPRIL 10 MG TAB PO SCH (08:34)
[2019-08-04] MEDS: POLYETHYLENE GLYCOL 3350 17 GM PACK PO SCH (08:34)
--- NOTE | 2019-08-04 08:45 | Progress Note ---
DATE: 08/04/2019 SUBJECTIVE: The patient came with acute sigmoid diverticulitis, currently doing better. Nausea still persists, but is much better. No chest pain. No shortness of breath. Positive for bowel movement. OBJECTIVE: VITAL SIGNS: Temperature is 98.2, pulse of 97, respirations 20, blood pressure is 141/77. HEENT: Normocephalic, atraumatic. Pupils reactive. No icterus present. CVS: S1 and S2 normal. Regular rate and rhythm. ABDOMEN: Slight tenderness in the left lower quadrant. EXTREMITIES: No clubbing, no cyanosis, no edema. The patient is hard of hearing. LABORATORY VALUES: White count yesterday was 9.77, hemoglobin is stable and BUN and creatinine yesterday were 11 and 0.62. ASSESSMENT: Ms. Mcguire with: 1. Acute diverticulitis, resolving. 2. Leukocytosis, resolved. 3. Fatigue. 4. Debility. 5. Hypertension. 6. History of bipolar disease and diabetes mellitus. PLAN: Okay to discharge today if patient gets home health and we will put her on antibiotics on discharge, Cipro and Flagyl for 5 more days and also give her some Zofran as needed. Medicines will be reconciled on discharge. Further recommendation as an outpatient. For further information, look in the chart. MD SAMANTA Babcock/IRISL /[id number]
--- NOTE | 2019-08-04 09:30 | NUR ---
[facility] called and spoke to Belinda at [facility] and verified that pt is currently on service with them. Pt currently receiving SN, PT, OT, ST, and home health aid. DERECK informed enzo that pt is discharging today. Resumption order for home health faxed to [facility] at [phone] / P [phone].
[2019-08-04 09:50] VITALS: BP 173/80
[2019-08-04] MEDS ORDERED: CIPRO500 MG PO (10:13)
[2019-08-04] MEDS ORDERED: ZOFRAN8 MG PO (10:14)
[2019-08-04] MEDS ORDERED: FLAGYL250 MG PO (10:14)
--- NOTE | 2019-08-04 10:16 | NUR ---
Home health set up per CM note, prescriptions provided to patient, discharge summary and education provided, patient to f/u with GI and PCP, contacts provided. IV one removed and patient waiting for ride to merchandise pickup/receiving associate.
--- NOTE | 2019-08-04 12:48 | NUR ---
Spoke with Shine with [facility]. He confirmed that they received order and clinicals. Said they have pt scheduled to be seen tomorrow.
--- NOTE | 2019-08-15 13:42 | Discharge Summary ---
DISCHARGE DIAGNOSIS: 1. Diverticulitis. 2. Sepsis secondary to diverticulitis. 3. Leukocytosis. 4. Hypertension. 5. Diabetes. 6. Hyperlipidemia. 7. Acute toxic encephalopathy secondary to sepsis. HISTORY OF PRESENT ILLNESS AND HOSPITAL COURSE: See hospital chart for full details. The patient is a lady, who is 63-year-old, who presented with abdominal pain, slight confusion, leukocytosis of 14.5 thousand, where CT scan showed diverticulitis, so she was brought in, placed on IV antibiotics. She felt significantly better each day. Her encephalopathy improved and at the time of discharge, the patient was feeling well. She was able to be switched over to p.o. antibiotics and follow up in 1 to 2 weeks with her primary care physician. Please see hospital chart for full details. MD ALBA Downey/DELLA /[id number]
== END 2019-08-04 11:56 | disposition home or self-care (01) | DRG 871 ==
LOC: ER 10:38 → ERHOLD 13:51 → IMCU 19:03 → OBSVTOIN 07-31 11:47 → MED/SURG 07-31 12:49
PROVIDERS: ADMIT Internal Medicine; ATTEND Internal Medicine
DX: A41.9 Sepsis, unspecified organism (principal); G93.41 Metabolic encephalopathy; E87.1 Hypo-osmolality and hyponatremia; N39.0 Urinary tract infection, site not specified; K57.32 Diverticulitis of large intestine without perforation or abscess without bleeding; I10 Essential (primary) hypertension; E87.6 Hypokalemia; E78.5 Hyperlipidemia, unspecified; B95.5 Unspecified streptococcus as the cause of diseases classified elsewhere; J02.9 Acute pharyngitis, unspecified; F31.9 Bipolar disorder, unspecified; I16.0 Hypertensive urgency; E11.65 Type 2 diabetes mellitus with hyperglycemia
CPT/HCPCS: 36415; 70450; 74177; 80048; 80053; 81001; 82150; 82550; 82553; 82948; 83690; 83735; 84132; 84484; 85025; 85610; 85730; 87086; 87186; 99284; G0378; J0360; J1817; J2405; J2550; J7030; Q9967

== ENCOUNTER 2019-10-05 11:46 | Emergency (ER) | payer MEDICARE ==
[~2019-10-05] VITALS: Ht 340.4 cm; Wt 80.7 kg
[~2019-10-05 11:46] MED LIST changes: +CIPRO500 MG PO; +FLAGYL250 MG PO; +ZOFRAN8 MG PO
[2019-10-05 12:29] LABS: BASOPHILS % 0.3 % (0.0-1.0); EOSINOPHILS # (AUTO) 0.1 (0.0-0.4); EOSINOPHILS % 0.7 % (0.0-6.0); HEMATOCRIT 38.9 % (34.2-44.1); HEMOGLOBIN 12.8 g/dL (12.0-16.0); LYMPHOCYTES # (AUTO) 2.5 (1.0-3.2); MEAN CORPUSCULAR HGB CONC 32.9 g/dL (31-35); MEAN CORPUSCULAR VOLUME 88.2 fL (81-99); MONOCYTES # (AUTO) 0.6 (0.2-0.8); MONOCYTES % 7.9 % (4.4-11.3); NEUTROPHILS # (AUTO) 4.5 (2.1-6.9); NEUTROPHILS % 58.8 % (38.7-80.0); PLATELET COUNT 215 x10e3/uL (140-360); RED BLOOD COUNT 4.41 x10e6/uL (3.6-5.1); RED CELL DISTRIBUTION WIDTH 12.7 % (11.7-14.4)
[2019-10-05 12:58] LABS: ALANINE AMINOTRANSFERASE 15 IU/L (0-55); ALBUMIN 3.6 g/dL (3.5-5.0); ALBUMIN/GLOBULIN RATIO 1.2 (0.8-2.0); ALKALINE PHOSPHATASE 77 IU/L (40-150); BLOOD UREA NITROGEN 10 mg/dL (7-26); BUN/CREATININE RATIO 17 (6-25); CALCIUM 9.2 mg/dL (8.4-10.2); CARBON DIOXIDE 26 mmol/L (22-29); CHLORIDE 103 mmol/L (98-107); CREATINE KINASE 16 IU/L (29-168); EST GLOMERULAR FILTRATION RATE > 60 ML/MIN (60-); GLUCOSE 180 mg/dL (74-118); SODIUM 138 mmol/L (136-145)
[2019-10-05 13:08] LABS: CREATINE KINASE MB < 1.00 ng/mL (0-4.3)
[2019-10-05 14:05] LABS: CLARITY,URINE SL CLOUDY (CLEAR); COLOR,URINE YELLOW (YELLOW)
[2019-10-05 14:06] LABS: BILIRUBIN,URINE NEGATIVE (NEGATIVE); KETONES,URINE NEGATIVE (NEGATIVE); LEUKOCYTE ESTERASE ,URINE SMALL (NEGATIVE); NITRITE,URINE POSITIVE (NEGATIVE); PROTEIN,URINE DIPSTICK NEGATIVE (NEGATIVE); URINE UROBILINOGEN 0.2 mg/dL (0.2 - 1)
[2019-10-05 14:20] LABS: BACTERIA,URINE MANY /HPF; EPITHELIAL CELLS,URINE RARE /LPF
[2019-10-05] MEDS ORDERED: ACETAMIN/BUTALBITAL/CAFFEINE TAB PO ONE (14:30)
[2019-10-05] MEDS ORDERED: METOCLOPRAMIDE HCL 10 MG/2ML VIAL IV ONE (14:30)
[2019-10-05] MEDS ORDERED: DIPHENHYDRAMINE HCL INJ 50 MG/ML VIAL IV ONE (14:30)
[2019-10-05] MEDS ORDERED: IOPAMIDOL 370 MG/ML 200 ML INFUS..BTL INJ ONE (16:27)
[2019-10-05] MEDS ORDERED: SODIUM CHLORIDE 0.9% 50ML 50 ML ONE (16:27)
--- NOTE | 2019-10-05 17:06 | Diagnostic Imaging Report ---
History:Syncope, weakness, Comparison studies: Head CTs on 07/30 and 07/29/2019. Brain MRI on 06/11/2019 Cervical and intracranial CTAs on 06/12/2019 Technique: Axial images were obtained from the thoracic inlet. Coronal and sagittal images reconstructed from the axial data. Dose modulation, iterative reconstruction, and/or weight based adjustment of the mA/kV was utilized to reduce the radiation dose to as low as reasonably achievable. Intravenous contrast: 100 cc of Omnipaque 300. Findings: Preliminary noncontrast head CT: See impression Aortic arch and major vessels: Nonstenosing calcified plaques in the arch and at the origins of the left subclavian and common carotid arteries Common carotid arteries: Patent. No abnormalities. Carotid bulbs: Nonstenosing (0%) calcified plaques bilaterally. Otherwise, no abnormalities. Internal carotid arteries: Patent in the cervical region and at the skull base. Non stenosing bilateral calcifications in the carotid siphons. A1 and M1 segments: No abnormalities. No major branch vessel occlusions Vertebral arteries: Patent. No abnormalities from the origins to the junction with the basilar artery. Basilar artery: Patent. No abnormalities. Posterior cerebral arteries: Patent, no abnormalities. Anatomical variants: Acom: Patent . Pcoms: Patent. Vertebral arteries: Left dominant IMPRESSION: Preliminary noncontrast head CT: 1. No acute abnormalities. 2. No changes when compared to the head CT on 07/30 and 07/29/2019 with the MRI on 06/11/2019. Persistent chronic findings: * Mild generalized volume loss. * Mild supratentorial microvascular small vessel ischemic changes. * Left striatocapsular lacunar insult. Cervical and intracranial CTAs: 1. No major branch occlusion or hemodynamically significant stenosis. 2. Nonstenosing (0%) calcified plaques in the aortic arch, at the carotid bulbs or carotid siphons 3. Otherwise, no abnormalities. 4. No changes when compared to the cervical and intracranial CTA study on 06/12/2019. Signed by: Dr. Gaurav Bhatti M.D. on 10/05/2019 5:02 PM
[2019-10-05] MEDS ORDERED: FIORICET 50-301 EACH PO (17:24)
== END 2019-10-05 17:44 | disposition home or self-care (01) ==
LOC: ER 11:46
DX: R51 Headache (principal); R35.0 Frequency of micturition; I10 Essential (primary) hypertension; E11.9 Type 2 diabetes mellitus without complications; E78.5 Hyperlipidemia, unspecified; F41.9 Anxiety disorder, unspecified; Z86.73 Personal history of transient ischemic attack (TIA), and cerebral infarction without residual deficits; Z95.1 Presence of aortocoronary bypass graft
CPT/HCPCS: 36415; 70496; 70498; 80053; 81001; 82550; 82553; 84484; 85025; 87086; 87186; 93005; 99284; J1200; J2765; Q9967

== ENCOUNTER 2020-05-31 08:38 | Inpatient (IN) | payer MEDICARE ==
[~2020-05-31] VITALS: Ht 340.4 cm; Wt 78.3 kg
[~2020-05-31 08:38] MED LIST changes: -DIVALPROEX SOD250 MG; +DIVALPROEX SOD250 MG PO; +FIORICET 50-301 EACH PO; -PRAVASTATIN SOD20 MG; +PRAVASTATIN SOD20 MG PO
[2020-05-31 09:11] LABS: BASOPHILS % 0.4 % (0.0-1.0); EOSINOPHILS # (AUTO) 0.1 (0.0-0.4); EOSINOPHILS % 1.3 % (0.0-6.0); HEMATOCRIT 37.6 % (34.2-44.1); HEMOGLOBIN 12.1 g/dL (12.0-16.0); LYMPHOCYTES # (AUTO) 2.2 (1.0-3.2); LYMPHOCYTES % 28.6 % (18.0-39.1); MEAN CORPUSCULAR HEMOGLOBIN 28.1 pg (28-32); MEAN CORPUSCULAR HGB CONC 32.2 g/dL (31-35); MEAN CORPUSCULAR VOLUME 87.2 fL (81-99); MONOCYTES # (AUTO) 0.5 (0.2-0.8); MONOCYTES % 6.9 % (4.4-11.3); NEUTROPHILS # (AUTO) 4.9 (2.1-6.9); NEUTROPHILS % 62.4 % (38.7-80.0); PLATELET COUNT 207 x10e3/uL (140-360); RED BLOOD COUNT 4.31 x10e6/uL (3.6-5.1); RED CELL DISTRIBUTION WIDTH 14.2 % (11.7-14.4)
[2020-05-31] MEDS ORDERED: ASPIRIN 81 MG CHEW TAB PO ONE ×2 (09:15→10:00)
[2020-05-31 09:38] LABS: ALANINE AMINOTRANSFERASE 13 IU/L (0-55); ALBUMIN 3.6 g/dL (3.5-5.0); ALBUMIN/GLOBULIN RATIO 1.1 (0.8-2.0); ALKALINE PHOSPHATASE 76 IU/L (40-150); ANION GAP 16.1 mmol/L (8-16); BLOOD UREA NITROGEN 14 mg/dL (7-26); BUN/CREATININE RATIO 21 (6-25); CALCIUM 8.9 mg/dL (8.4-10.2); CARBON DIOXIDE 24 mmol/L (22-29); CHLORIDE 102 mmol/L (98-107); CREATINE KINASE 19 IU/L (29-168); CREATININE, SERUM 0.67 mg/dL (0.57-1.11); EST GLOMERULAR FILTRATION RATE > 60 ML/MIN (60-); GLUCOSE 231 mg/dL (74-118); POTASSIUM 4.1 mmol/L (3.5-5.1); SODIUM 138 mmol/L (136-145)
[2020-05-31 11:50] VITALS: BP 179/95
[2020-05-31 12:00] VITALS: BP 179/95
[2020-05-31] MEDS ORDERED: DIATRIZOATE MEGL/DIATRIZOA SOD 30 ML BTL PO ONE (15:36)
[2020-05-31 16:00] VITALS: BP 175/77
[2020-05-31] MEDS ORDERED: OMEPRAZOLE40 MG PO (18:16)
[2020-05-31] MEDS ORDERED: VITAMIN D350 MCG PO (18:16)
[2020-05-31] MEDS ORDERED: ULTRAM50 MG PO (18:16)
[2020-05-31] MEDS ORDERED: METFORMIN HCL500 MG PO (18:16)
[2020-05-31] MEDS ORDERED: GLIPIZIDE5 MG PO (18:16)
[2020-05-31] MEDS ORDERED: SYMBICORT 16010.2 GM INH (18:16)
[2020-05-31] MEDS ORDERED: VALSARTAN-HCTZ1 EAC1 PO (18:16)
[2020-05-31] MEDS ORDERED: GABAPENTIN300 MG PO (18:16)
[2020-05-31] MEDS ORDERED: AZO URINARY P99.5 MG PO (18:16)
[2020-05-31] MEDS: ACETAMINOPHEN 325 MG TAB PO PRN (18:21)
[2020-05-31] MEDS ORDERED: ACETAMIN/BUTALBITAL/CAFFEINE TAB PO PRN (18:30)
[2020-05-31] MEDS ORDERED: PHENAZOPYRIDINE HCL 100 MG TAB PO PRN (18:30)
[2020-05-31] MEDS ORDERED: NON-FORMULARY MEDICATION (Ondansetron Hcl (Zofran) 4 MG) PO SCH (18:30)
[2020-05-31 18:37] LABS: CREATINE KINASE MB 0.6 ng/mL (0-5.0)
[2020-05-31] MEDS: FAMOTIDINE 20 MG TAB PO SCH (19:55)
[2020-05-31 20:00] VITALS: BP 134/88
[2020-05-31 21:00] VITALS: BP 134/88
[2020-05-31] MEDS: GABAPENTIN 300 MG CAP PO SCH (21:15)
[2020-05-31] MEDS: DIVALPROEX SODIUM 250 MG TAB...DR PO SCH (21:15)
[2020-05-31] MEDS: PRAVASTATIN 20 MG TAB PO SCH (21:15)
[2020-05-31] MEDS: BUSPIRONE HCL 5 MG TAB PO SCH (21:15)
[2020-05-31] MEDS: METOPROLOL TARTRATE 25 MG TAB PO SCH (21:15)
[2020-05-31] MEDS: ONDANSETRON HCL INJ 2MG/ML 2ML 2 MG/ML VIAL IV PRN (22:02)
[2020-06-01] VITALS (8 sets, daily range): BP systolic 119–165; BP diastolic 60–79
[2020-06-01 03:42] LABS: BASOPHILS % 0.3 % (0.0-1.0); EOSINOPHILS # (AUTO) 0.1 (0.0-0.4); EOSINOPHILS % 1.1 % (0.0-6.0); HEMATOCRIT 37.3 % (34.2-44.1); HEMOGLOBIN 12.5 g/dL (12.0-16.0); LYMPHOCYTES # (AUTO) 2.6 (1.0-3.2); LYMPHOCYTES % 35.5 % (18.0-39.1); MEAN CORPUSCULAR HEMOGLOBIN 28.7 pg (28-32); MEAN CORPUSCULAR HGB CONC 33.5 g/dL (31-35); MEAN CORPUSCULAR VOLUME 85.7 fL (81-99); MONOCYTES # (AUTO) 0.5 (0.2-0.8); MONOCYTES % 6.9 % (4.4-11.3); NEUTROPHILS # (AUTO) 4.1 (2.1-6.9); NEUTROPHILS % 55.9 % (38.7-80.0); PLATELET COUNT 213 x10e3/uL (140-360); RED BLOOD COUNT 4.35 x10e6/uL (3.6-5.1); RED CELL DISTRIBUTION WIDTH 13.8 % (11.7-14.4)
[2020-06-01 04:00] LABS: ALANINE AMINOTRANSFERASE 14 IU/L (0-55); ALBUMIN 3.4 g/dL (3.5-5.0); ALBUMIN/GLOBULIN RATIO 1.1 (0.8-2.0); ALKALINE PHOSPHATASE 59 IU/L (40-150); CALCIUM 8.7 mg/dL (8.4-10.2); CARBON DIOXIDE 23 mmol/L (22-29); CHLORIDE 104 mmol/L (98-107); CHOLESTEROL 131 MD/DL (0-199); CREATININE, SERUM 0.59 mg/dL (0.57-1.11); EST GLOMERULAR FILTRATION RATE > 60 ML/MIN (60-); GLUCOSE 207 mg/dL (74-118); LIPASE 18 U/L (8-78); SODIUM 139 mmol/L (136-145); TRIGLYCERIDES 137 MG/DL (0-149)
[2020-06-01 04:09] LABS: BLOOD UREA NITROGEN 9 mg/dL (7-26); BUN/CREATININE RATIO 15 (6-25)
[2020-06-01 04:17] LABS: CHOL/HDL RATIO 3.7 (3.0-3.6); HDL CHOLESTEROL 35 MG/DL (40-60); LDL CHOLESTEROL 69 MG/DL (60-130)
[2020-06-01 04:20] LABS: THYROID STIMULATING HORMONE 1.856 uIU/mL (0.350-4.940)
[2020-06-01 04:21] LABS: CREATINE KINASE MB 0.7 ng/mL (0-5.0)
[2020-06-01] MEDS: BUDESONIDE/FORMOTEROL 160/4.5MCG INHALER INH SCH (06:00)
[2020-06-01] MEDS ORDERED: PANTOPRAZOLE SOD 40 MG TABEC PO SCH (07:30)
[2020-06-01] MEDS: GLIPIZIDE 5 MG TAB PO SCH (08:54)
[2020-06-01] MEDS: FAMOTIDINE 20 MG TAB PO SCH ×2 (08:54→17:50)
[2020-06-01] MEDS: METFORMIN HCL 500 MG TAB PO SCH ×2 (08:55→17:50)
[2020-06-01] MEDS: GABAPENTIN 300 MG CAP PO SCH ×2 (08:57→15:40)
[2020-06-01] MEDS: METOPROLOL TARTRATE 25 MG TAB PO SCH ×2 (08:57→17:00)
[2020-06-01] MEDS: ISOSORBIDE MONONITRATE 20 MG TAB PO SCH (08:57)
[2020-06-01] MEDS: CHOLECALCIFEROL 1,000 UNIT TAB PO SCH (08:59)
[2020-06-01] MEDS ORDERED: HYDROCHLOROTHIAZIDE 25 MG TAB PO SCH (09:00)
[2020-06-01] MEDS ORDERED: LISINOPRIL 10 MG TAB PO SCH (09:00)
[2020-06-01] MEDS ORDERED: VALSARTAN 160 MG TAB PO SCH (09:00)
[2020-06-01] MEDS ORDERED: TRAMADOL HCL 50 MG TAB PO SCH (09:00)
[2020-06-01] MEDS ORDERED: CHOLESTYRAMINE 4 GM PACKET PO ONE (16:15)
[2020-06-01] MEDS ORDERED: LOPERAMIDE HCL 2 MG CAP PO PRN (16:30)
[2020-06-01] MEDS: ONDANSETRON HCL INJ 2MG/ML 2ML 2 MG/ML VIAL IV PRN ×2 (17:20→21:37)
[2020-06-01] MEDS: TRAMADOL HCL 50 MG TAB PO PRN (17:40)
[2020-06-01] MEDS ORDERED: EMETROL PO (19:48)
[2020-06-01] MEDS ORDERED: VALSARTAN160 MG PO (19:50)
[2020-06-01] MEDS ORDERED: PEPTO-BISM525 MG/15 PO (19:50)
[2020-06-01] MEDS ORDERED: NITROGLYCERIN0.4 MG SL (19:52)
[2020-06-01] MEDS ORDERED: STOOL SOFTENER1 EACH PO (19:53)
[2020-06-01] MEDS ORDERED: GLUCOSE4 GM PO (19:58)
[2020-06-01] MEDS ORDERED: NYSTATIN15 GM TOP (19:58)
[2020-06-01] MEDS ORDERED: VITAMIN D310 MCG PO (19:58)
[2020-06-01] MEDS ORDERED: BENADRYL25 M1 PO (19:58)
[2020-06-01] MEDS ORDERED: ASPIRIN81 MG PO (19:58)
[2020-06-01] MEDS ORDERED: METOPROLOL SUCC25 MG PO (19:59)
[2020-06-01] MEDS: PRAVASTATIN 20 MG TAB PO SCH (21:04)
[2020-06-01] MEDS: DIVALPROEX SODIUM 250 MG TAB...DR PO SCH (21:04)
[2020-06-01] MEDS: BUSPIRONE HCL 5 MG TAB PO SCH (21:04)
[2020-06-02] VITALS (8 sets, daily range): BP systolic 126–173; BP diastolic 61–94
[2020-06-02 05:12] LABS: BASOPHILS % 0.2 % (0.0-1.0); EOSINOPHILS # (AUTO) 0.1 (0.0-0.4); EOSINOPHILS % 0.9 % (0.0-6.0); HEMATOCRIT 38.3 % (34.2-44.1); HEMOGLOBIN 12.5 g/dL (12.0-16.0); LYMPHOCYTES # (AUTO) 3.1 (1.0-3.2); LYMPHOCYTES % 26.9 % (18.0-39.1); MEAN CORPUSCULAR HGB CONC 32.6 g/dL (31-35); MEAN CORPUSCULAR VOLUME 85.9 fL (81-99); MONOCYTES % 8.5 % (4.4-11.3); NEUTROPHILS # (AUTO) 7.3 (2.1-6.9); NEUTROPHILS % 63.1 % (38.7-80.0); PLATELET COUNT 227 x10e3/uL (140-360); RED BLOOD COUNT 4.46 x10e6/uL (3.6-5.1); RED CELL DISTRIBUTION WIDTH 14.3 % (11.7-14.4)
[2020-06-02 05:35] LABS: ANION GAP 18.3 mmol/L (8-16); BLOOD UREA NITROGEN 11 mg/dL (7-26); BUN/CREATININE RATIO 15 (6-25); CARBON DIOXIDE 24 mmol/L (22-29); CHLORIDE 100 mmol/L (98-107); CREATININE, SERUM 0.72 mg/dL (0.57-1.11); EST GLOMERULAR FILTRATION RATE > 60 ML/MIN (60-); GLUCOSE 180 mg/dL (74-118); POTASSIUM 4.3 mmol/L (3.5-5.1); SODIUM 138 mmol/L (136-145)
[2020-06-02] MEDS: BUDESONIDE/FORMOTEROL 160/4.5MCG INHALER INH SCH (06:00)
[2020-06-02] MEDS: ONDANSETRON HCL INJ 2MG/ML 2ML 2 MG/ML VIAL IV PRN ×3 (06:14→20:38)
[2020-06-02] MEDS: GLIPIZIDE 5 MG TAB PO SCH (08:16)
[2020-06-02] MEDS: FAMOTIDINE 20 MG TAB PO SCH (08:17)
[2020-06-02] MEDS: METFORMIN HCL 500 MG TAB PO SCH (08:17)
[2020-06-02] MEDS: ISOSORBIDE MONONITRATE 20 MG TAB PO SCH (08:17)
[2020-06-02] MEDS: CHOLECALCIFEROL 1,000 UNIT TAB PO SCH (08:18)
[2020-06-02 13:06] LABS: CLARITY,URINE CLOUDY (CLEAR); COLOR,URINE YELLOW (YELLOW); KETONES,URINE 1+ (NEGATIVE); LEUKOCYTE ESTERASE ,URINE SMALL (NEGATIVE); NITRITE,URINE POSITIVE (NEGATIVE); PROTEIN,URINE DIPSTICK 2+ (NEGATIVE); URINE UROBILINOGEN 0.2 mg/dL (0.2 - 1)
[2020-06-02 13:35] LABS: RBC,URINE >50 /HPF (0-5); WBC,URINE (MAN) 21-50 /HPF (0-5)
[2020-06-02 13:36] LABS: BACTERIA,URINE MODERATE /HPF; EPITHELIAL CELLS,URINE RARE /LPF
[2020-06-02] MEDS ORDERED: SODIUM CHLORIDE 0.45% 1,000 ML IV ONE (14:15)
[2020-06-02] MEDS: METRONIDAZOLE 500MG/NS 100ML 100 ML IV SCH ×2 (14:19→21:21)
[2020-06-02] MEDS: CEFEPIME 1GM/NS 0.9% 50 ML 50 ML IV SCH ×2 (14:20→22:24)
[2020-06-02] MEDS: TRAMADOL HCL 50 MG TAB PO PRN ×3 (15:05→17:31)
[2020-06-02] MEDS: FAMOTIDINE 20 MG/2 ML VIAL IV SCH (17:28)
[2020-06-02] MEDS: HYDRALAZINE HCL 20 MG/ML VIAL IV PRN (20:33)
[2020-06-02] MEDS: ACETAMINOPHEN 325 MG TAB PO PRN (21:21)
[2020-06-02] MEDS: BUSPIRONE HCL 5 MG TAB PO SCH (21:21)
[2020-06-02] MEDS: DIVALPROEX SODIUM 250 MG TAB...DR PO SCH (21:21)
[2020-06-03] VITALS (7 sets, daily range): BP systolic 112–162; BP diastolic 65–99
[2020-06-03] MEDS: ONDANSETRON HCL INJ 2MG/ML 2ML 2 MG/ML VIAL IV PRN ×2 (02:13→08:05)
[2020-06-03] MEDS: HYDRALAZINE HCL 20 MG/ML VIAL IV PRN (04:51)
[2020-06-03 04:59] LABS: BASOPHILS % 0.2 % (0.0-1.0); EOSINOPHILS % 0.1 % (0.0-6.0); HEMATOCRIT 43.5 % (34.2-44.1); HEMOGLOBIN 14.2 g/dL (12.0-16.0); LYMPHOCYTES # (AUTO) 0.8 (1.0-3.2); LYMPHOCYTES % 6.2 % (18.0-39.1); MEAN CORPUSCULAR HEMOGLOBIN 28.1 pg (28-32); MEAN CORPUSCULAR HGB CONC 32.6 g/dL (31-35); MONOCYTES # (AUTO) 0.5 (0.2-0.8); MONOCYTES % 3.5 % (4.4-11.3); NEUTROPHILS # (AUTO) 12.1 (2.1-6.9); NEUTROPHILS % 89.3 % (38.7-80.0); PLATELET COUNT 230 x10e3/uL (140-360); RED BLOOD COUNT 5.06 x10e6/uL (3.6-5.1); RED CELL DISTRIBUTION WIDTH 14.2 % (11.7-14.4)
[2020-06-03 05:17] LABS: ANION GAP 25.4 mmol/L (8-16); BLOOD UREA NITROGEN 11 mg/dL (7-26); BUN/CREATININE RATIO 15 (6-25); CALCIUM 9.8 mg/dL (8.4-10.2); CARBON DIOXIDE 15 mmol/L (22-29); CHLORIDE 99 mmol/L (98-107); CREATININE, SERUM 0.75 mg/dL (0.57-1.11); EST GLOMERULAR FILTRATION RATE > 60 ML/MIN (60-); MAGNESIUM 1.4 MG/DL (1.3-2.1); POTASSIUM 4.4 mmol/L (3.5-5.1); SODIUM 135 mmol/L (136-145)
[2020-06-03] MEDS: BUDESONIDE/FORMOTEROL 160/4.5MCG INHALER INH SCH (05:22)
[2020-06-03 05:23] LABS: GLUCOSE 409 mg/dL (74-118)
[2020-06-03] MEDS ORDERED: INSULIN ASPART 70/30 100 UNITS/ML VIAL SC SCH (05:30)
[2020-06-03] MEDS: METRONIDAZOLE 500MG/NS 100ML 100 ML IV SCH ×2 (05:39→15:05)
[2020-06-03] MEDS: CEFEPIME 1GM/NS 0.9% 50 ML 50 ML IV SCH ×3 (06:09→20:11)
[2020-06-03] MEDS ORDERED: DEXTROSE 50% SYRINGE 50 ML IV PRN ×2 (08:00→12:45)
[2020-06-03] MEDS: GLIPIZIDE 5 MG TAB PO SCH (08:01)
[2020-06-03] MEDS: CHOLECALCIFEROL 1,000 UNIT TAB PO SCH (08:02)
[2020-06-03] MEDS: ISOSORBIDE MONONITRATE 20 MG TAB PO SCH (08:02)
[2020-06-03] MEDS: FAMOTIDINE 20 MG/2 ML VIAL IV SCH (08:04)
[2020-06-03] MEDS ORDERED: SODIUM CHLORIDE 0.9% 1000ML 1,000 ML IV ONE (10:30)
[2020-06-03] MEDS: METOPROLOL TARTRATE 25 MG TAB PO SCH ×2 (10:39→17:19)
[2020-06-03] MEDS ORDERED: INSULIN LISPRO 100 UNIT/1 ML 3ML VIAL SQ SCH (11:30)
[2020-06-03] MEDS ORDERED: INSULIN REGULAR, HUMAN 3ML VL 100 UNIT in SODIUM CHLORIDE 0.9% 100 ML 100 ML IV SCH ×2 (12:45)
[2020-06-03] MEDS: SODIUM CHLORIDE 0.9% 1000ML 1,000 ML IV SCH ×2 (15:04→20:11)
[2020-06-03] MEDS: PANTOPRAZOLE 40 MG 10ML VIAL IV SCH (17:16)
[2020-06-03] MEDS: INSULIN REGULAR, HUMAN 3ML VL 100 UNIT in SODIUM CHLORIDE 0.9% 100 ML 100 ML IV SCH ×6 (18:25→22:00)
[2020-06-03] MEDS: BUSPIRONE HCL 5 MG TAB PO SCH (20:10)
[2020-06-03] MEDS: DIVALPROEX SODIUM 250 MG TAB...DR PO SCH (20:11)
[2020-06-03] MEDS: TRAMADOL HCL 50 MG TAB PO PRN (20:11)
[2020-06-04] VITALS (8 sets, daily range): BP systolic 112–166; BP diastolic 56–88
[2020-06-04] MEDS: METRONIDAZOLE 500MG/NS 100ML 100 ML IV SCH ×3 (00:10→17:01)
[2020-06-04] MEDS: INSULIN REGULAR, HUMAN 3ML VL 100 UNIT in SODIUM CHLORIDE 0.9% 100 ML 100 ML IV SCH ×4 (04:18→17:50)
[2020-06-04] MEDS: CEFEPIME 1GM/NS 0.9% 50 ML 50 ML IV SCH ×3 (04:18→21:51)
[2020-06-04] MEDS: SODIUM CHLORIDE 0.9% 1000ML 1,000 ML IV SCH ×2 (04:26→14:03)
[2020-06-04 04:39] LABS: BASOPHILS % 0.2 % (0.0-1.0); EOSINOPHILS % 0.1 % (0.0-6.0); HEMATOCRIT 36.2 % (34.2-44.1); HEMOGLOBIN 11.8 g/dL (12.0-16.0); LYMPHOCYTES # (AUTO) 2.5 (1.0-3.2); LYMPHOCYTES % 18.3 % (18.0-39.1); MEAN CORPUSCULAR HEMOGLOBIN 27.9 pg (28-32); MEAN CORPUSCULAR HGB CONC 32.6 g/dL (31-35); MEAN CORPUSCULAR VOLUME 85.6 fL (81-99); MONOCYTES # (AUTO) 1.3 (0.2-0.8); MONOCYTES % 9.3 % (4.4-11.3); NEUTROPHILS # (AUTO) 9.8 (2.1-6.9); NEUTROPHILS % 71.5 % (38.7-80.0); PLATELET COUNT 247 x10e3/uL (140-360); RED BLOOD COUNT 4.23 x10e6/uL (3.6-5.1); RED CELL DISTRIBUTION WIDTH 14.7 % (11.7-14.4)
[2020-06-04 05:05] LABS: ALANINE AMINOTRANSFERASE < 6 IU/L (0-55); ALBUMIN 3.1 g/dL (3.5-5.0); ALKALINE PHOSPHATASE 55 IU/L (40-150); ANION GAP 12.6 mmol/L (8-16); BLOOD UREA NITROGEN 21 mg/dL (7-26); BUN/CREATININE RATIO 32 (6-25); CALCIUM 8.9 mg/dL (8.4-10.2); CARBON DIOXIDE 24 mmol/L (22-29); CHLORIDE 108 mmol/L (98-107); CREATININE, SERUM 0.66 mg/dL (0.57-1.11); EST GLOMERULAR FILTRATION RATE > 60 ML/MIN (60-); GLUCOSE 83 mg/dL (74-118); POTASSIUM 3.6 mmol/L (3.5-5.1); SODIUM 141 mmol/L (136-145)
[2020-06-04] MEDS: BUDESONIDE/FORMOTEROL 160/4.5MCG INHALER INH SCH (06:00)
[2020-06-04] MEDS: CHOLECALCIFEROL 1,000 UNIT TAB PO SCH (08:02)
[2020-06-04] MEDS: ISOSORBIDE MONONITRATE 20 MG TAB PO SCH (08:02)
[2020-06-04] MEDS: PANTOPRAZOLE 40 MG 10ML VIAL IV SCH ×2 (08:02→16:27)
[2020-06-04] MEDS: METOPROLOL TARTRATE 25 MG TAB PO SCH ×2 (08:02→16:38)
[2020-06-04] MEDS: TRAMADOL HCL 50 MG TAB PO PRN ×2 (14:03→21:01)
[2020-06-04] MEDS: DIVALPROEX SODIUM 250 MG TAB...DR PO SCH (20:41)
[2020-06-04] MEDS: BUSPIRONE HCL 5 MG TAB PO SCH (20:41)
[2020-06-04] MEDS: MELATONIN 5 MG TABLET PO SCH (20:41)
[2020-06-04] MEDS: ONDANSETRON HCL INJ 2MG/ML 2ML 2 MG/ML VIAL IV PRN (21:01)
[2020-06-05] VITALS (7 sets, daily range): BP systolic 116–170; BP diastolic 64–84
[2020-06-05] MEDS: SODIUM CHLORIDE 0.9% 1000ML 1,000 ML IV SCH ×2 (00:22→09:50)
[2020-06-05] MEDS: METRONIDAZOLE 500MG/NS 100ML 100 ML IV SCH ×2 (01:38→09:50)
[2020-06-05] MEDS: ONDANSETRON HCL INJ 2MG/ML 2ML 2 MG/ML VIAL IV PRN ×3 (02:21→21:50)
[2020-06-05] MEDS: HYDRALAZINE HCL 20 MG/ML VIAL IV PRN (02:51)
[2020-06-05] MEDS: CEFEPIME 1GM/NS 0.9% 50 ML 50 ML IV SCH ×3 (05:50→21:50)
[2020-06-05] MEDS: BUDESONIDE/FORMOTEROL 160/4.5MCG INHALER INH SCH (06:00)
[2020-06-05 06:14] LABS: BASOPHILS % 0.1 % (0.0-1.0); EOSINOPHILS % 0.4 % (0.0-6.0); HEMATOCRIT 35.7 % (34.2-44.1); HEMOGLOBIN 11.6 g/dL (12.0-16.0); MEAN CORPUSCULAR HEMOGLOBIN 27.8 pg (28-32); MEAN CORPUSCULAR HGB CONC 32.5 g/dL (31-35); MEAN CORPUSCULAR VOLUME 85.6 fL (81-99); MONOCYTES # (AUTO) 0.7 (0.2-0.8); MONOCYTES % 8.3 % (4.4-11.3); NEUTROPHILS # (AUTO) 5.5 (2.1-6.9); NEUTROPHILS % 66.6 % (38.7-80.0); PLATELET COUNT 204 x10e3/uL (140-360); RED BLOOD COUNT 4.17 x10e6/uL (3.6-5.1); RED CELL DISTRIBUTION WIDTH 14.5 % (11.7-14.4)
[2020-06-05 06:45] LABS: ALANINE AMINOTRANSFERASE 8 IU/L (0-55); ALKALINE PHOSPHATASE 52 IU/L (40-150); ANION GAP 15.1 mmol/L (8-16); BLOOD UREA NITROGEN 11 mg/dL (7-26); BUN/CREATININE RATIO 21 (6-25); CALCIUM 8.2 mg/dL (8.4-10.2); CARBON DIOXIDE 22 mmol/L (22-29); CHLORIDE 105 mmol/L (98-107); CREATININE, SERUM 0.53 mg/dL (0.57-1.11); EST GLOMERULAR FILTRATION RATE > 60 ML/MIN (60-); GLUCOSE 109 mg/dL (74-118); POTASSIUM 3.1 mmol/L (3.5-5.1); SODIUM 139 mmol/L (136-145)
[2020-06-05] MEDS ORDERED: POTASSIUM CHLORIDE 20MEQ/100ML 100 ML IV ONE (07:00)
[2020-06-05] MEDS: VALSARTAN 160 MG TAB PO SCH (09:49)
[2020-06-05] MEDS: PANTOPRAZOLE 40 MG 10ML VIAL IV SCH ×2 (09:49→16:04)
[2020-06-05] MEDS: ISOSORBIDE MONONITRATE 20 MG TAB PO SCH (09:50)
[2020-06-05] MEDS: CHOLECALCIFEROL 1,000 UNIT TAB PO SCH (09:50)
[2020-06-05] MEDS: TRAMADOL HCL 50 MG TAB PO PRN (09:50)
[2020-06-05] MEDS: METOPROLOL TARTRATE 25 MG TAB PO SCH ×2 (09:50→16:04)
[2020-06-05] MEDS ORDERED: BUSPIRONE HCL 5 MG TAB PO ONE (11:15)
[2020-06-05 11:31] LABS: MAGNESIUM 1.2 MG/DL (1.3-2.1); PHOSPHORUS 2.2 MG/DL (2.3-4.7)
[2020-06-05] MEDS ORDERED: POTASSIUM CHLORIDE 20MEQ/100ML 200 ML IV ONE (13:00)
[2020-06-05] MEDS ORDERED: MAGNESIUM SULFATE 2GM/50ML 50 ML IV ONE ×2 (13:45→15:45)
[2020-06-05] MEDS: BUSPIRONE HCL 5 MG TAB PO SCH ×2 (16:04→21:50)
[2020-06-05] MEDS: ACETAMINOPHEN 325 MG TAB PO PRN (16:06)
[2020-06-05] MEDS: INSULIN LISPRO 100 UNIT/1 ML 3ML VIAL SQ SCH ×3 (16:30→21:49)
[2020-06-05] MEDS ORDERED: DEXTROSE 50% SYRINGE 50 ML IV PRN (16:30)
[2020-06-05] MEDS ORDERED: INSULIN GLARGINE 100 UNITS/ML VIAL SQ SCH (21:00)
[2020-06-05] MEDS: MELATONIN 5 MG TABLET PO SCH (21:50)
[2020-06-05] MEDS: DIVALPROEX SODIUM 250 MG TAB...DR PO SCH (21:50)
[2020-06-06] VITALS (7 sets, daily range): BP systolic 108–168; BP diastolic 65–89
[2020-06-06] MEDS: SODIUM CHLORIDE 0.9% 1000ML 1,000 ML IV SCH ×3 (00:45→20:45)
[2020-06-06 05:12] LABS: BASOPHILS % 0.3 % (0.0-1.0); EOSINOPHILS # (AUTO) 0.1 (0.0-0.4); EOSINOPHILS % 0.8 % (0.0-6.0); HEMATOCRIT 34.7 % (34.2-44.1); HEMOGLOBIN 11.3 g/dL (12.0-16.0); LYMPHOCYTES # (AUTO) 2.1 (1.0-3.2); LYMPHOCYTES % 32.2 % (18.0-39.1); MEAN CORPUSCULAR HGB CONC 32.6 g/dL (31-35); MEAN CORPUSCULAR VOLUME 85.9 fL (81-99); MONOCYTES # (AUTO) 0.8 (0.2-0.8); MONOCYTES % 11.6 % (4.4-11.3); NEUTROPHILS # (AUTO) 3.6 (2.1-6.9); NEUTROPHILS % 54.9 % (38.7-80.0); PLATELET COUNT 219 x10e3/uL (140-360); RED BLOOD COUNT 4.04 x10e6/uL (3.6-5.1); RED CELL DISTRIBUTION WIDTH 14.3 % (11.7-14.4)
[2020-06-06 05:34] LABS: ANION GAP 12.6 mmol/L (8-16); CARBON DIOXIDE 24 mmol/L (22-29); CHLORIDE 106 mmol/L (98-107); CREATININE, SERUM 0.52 mg/dL (0.57-1.11); GLUCOSE 144 mg/dL (74-118); MAGNESIUM 1.6 MG/DL (1.3-2.1); PHOSPHORUS 1.9 MG/DL (2.3-4.7); POTASSIUM 3.6 mmol/L (3.5-5.1); SODIUM 139 mmol/L (136-145)
[2020-06-06 05:57] LABS: BUN/CREATININE RATIO 10 (6-25)
[2020-06-06] MEDS: CEFEPIME 1GM/NS 0.9% 50 ML 50 ML IV SCH ×3 (06:00→21:55)
[2020-06-06] MEDS: BUDESONIDE/FORMOTEROL 160/4.5MCG INHALER INH SCH (06:00)
[2020-06-06 06:01] LABS: BLOOD UREA NITROGEN 5 mg/dL (7-26)
[2020-06-06 07:15] LABS: EST GLOMERULAR FILTRATION RATE > 60 ML/MIN (60-)
[2020-06-06] MEDS: PANTOPRAZOLE 40 MG 10ML VIAL IV SCH ×2 (07:42→17:42)
[2020-06-06] MEDS: VALSARTAN 160 MG TAB PO SCH (07:43)
[2020-06-06] MEDS: ISOSORBIDE MONONITRATE 20 MG TAB PO SCH (07:43)
[2020-06-06] MEDS: BUSPIRONE HCL 5 MG TAB PO SCH ×3 (07:43→21:54)
[2020-06-06] MEDS: CHOLECALCIFEROL 1,000 UNIT TAB PO SCH (07:44)
[2020-06-06] MEDS: METOPROLOL TARTRATE 25 MG TAB PO SCH ×2 (07:44→17:42)
[2020-06-06] MEDS: INSULIN LISPRO 100 UNIT/1 ML 3ML VIAL SQ SCH ×7 (08:13→21:00)
[2020-06-06] MEDS ORDERED: MAGNESIUM SULFATE 2GM/50ML 50 ML IV ONE (12:30)
[2020-06-06] MEDS ORDERED: POTASSIUM PHOSPHATE 15 MM in SODIUM CHLORIDE 0.9% 250ML 250 ML IV ONE (15:00)
[2020-06-06] MEDS ORDERED: INSULIN GLARGINE 100 UNITS/ML VIAL SQ SCH (21:00)
[2020-06-06] MEDS: MELATONIN 5 MG TABLET PO SCH (21:30)
[2020-06-06] MEDS: DIVALPROEX SODIUM 250 MG TAB...DR PO SCH (21:54)
[2020-06-06] MEDS: TRAMADOL HCL 50 MG TAB PO PRN (23:00)
[2020-06-07] VITALS (7 sets, daily range): BP systolic 145–183; BP diastolic 64–92
[2020-06-07] MEDS: HYDRALAZINE HCL 20 MG/ML VIAL IV PRN (01:08)
[2020-06-07] MEDS: ONDANSETRON HCL INJ 2MG/ML 2ML 2 MG/ML VIAL IV PRN (02:34)
[2020-06-07] MEDS: CEFEPIME 1GM/NS 0.9% 50 ML 50 ML IV SCH ×3 (05:24→22:39)
[2020-06-07] MEDS: SODIUM CHLORIDE 0.9% 1000ML 1,000 ML IV SCH ×2 (05:24→18:19)
[2020-06-07 06:15] LABS: BASOPHILS % 0.1 % (0.0-1.0); EOSINOPHILS # (AUTO) 0.1 (0.0-0.4); EOSINOPHILS % 1.1 % (0.0-6.0); HEMATOCRIT 37.1 % (34.2-44.1); HEMOGLOBIN 12.2 g/dL (12.0-16.0); LYMPHOCYTES # (AUTO) 2.6 (1.0-3.2); LYMPHOCYTES % 33.9 % (18.0-39.1); MEAN CORPUSCULAR HEMOGLOBIN 28.1 pg (28-32); MEAN CORPUSCULAR HGB CONC 32.9 g/dL (31-35); MEAN CORPUSCULAR VOLUME 85.5 fL (81-99); MONOCYTES # (AUTO) 0.7 (0.2-0.8); MONOCYTES % 9.7 % (4.4-11.3); NEUTROPHILS # (AUTO) 4.1 (2.1-6.9); NEUTROPHILS % 54.8 % (38.7-80.0); PLATELET COUNT 206 x10e3/uL (140-360); RED BLOOD COUNT 4.34 x10e6/uL (3.6-5.1); RED CELL DISTRIBUTION WIDTH 14.3 % (11.7-14.4)
[2020-06-07 07:00] LABS: ANION GAP 14.8 mmol/L (8-16); BLOOD UREA NITROGEN 6 mg/dL (7-26); BUN/CREATININE RATIO 11 (6-25); CALCIUM 8.6 mg/dL (8.4-10.2); CARBON DIOXIDE 24 mmol/L (22-29); CHLORIDE 101 mmol/L (98-107); CREATININE, SERUM 0.54 mg/dL (0.57-1.11); EST GLOMERULAR FILTRATION RATE > 60 ML/MIN (60-); GLUCOSE 221 mg/dL (74-118); MAGNESIUM 1.4 MG/DL (1.3-2.1); PHOSPHORUS 2.1 MG/DL (2.3-4.7); POTASSIUM 3.8 mmol/L (3.5-5.1); SODIUM 136 mmol/L (136-145)
[2020-06-07] MEDS ORDERED: ESTROGENS CONJUGATED VAGINAL CR 45 GM TUBE PV ONE (07:23)
[2020-06-07] MEDS: INSULIN LISPRO 100 UNIT/1 ML 3ML VIAL SQ SCH ×7 (07:30→21:00)
[2020-06-07] MEDS: BUSPIRONE HCL 5 MG TAB PO SCH ×3 (11:47→22:37)
[2020-06-07] MEDS: CHOLECALCIFEROL 1,000 UNIT TAB PO SCH (11:47)
[2020-06-07] MEDS: PANTOPRAZOLE 40 MG 10ML VIAL IV SCH ×2 (11:47→18:19)
[2020-06-07] MEDS: METOPROLOL TARTRATE 25 MG TAB PO SCH ×2 (11:48→18:19)
[2020-06-07] MEDS: ISOSORBIDE MONONITRATE 20 MG TAB PO SCH (11:48)
[2020-06-07] MEDS: VALSARTAN 160 MG TAB PO SCH (11:48)
[2020-06-07] MEDS ORDERED: SEVOFLURANE INHAL SOLN 250 ML PEN BTL ONE (14:14)
[2020-06-07] MEDS ORDERED: PROPOFOL IV EMULSION 10 MG/ML 20 ML VIAL ONE (14:14)
[2020-06-07] MEDS ORDERED: LIDOCAINE HCL 2% LOCAL INJ 5 ML SDV VIAL INJ ONE (14:14)
[2020-06-07] MEDS ORDERED: ONDANSETRON HCL INJ 2MG/ML 2ML 2 MG/ML VIAL ONE (14:14)
[2020-06-07] MEDS ORDERED: INSULIN GLARGINE 100 UNITS/ML VIAL SQ SCH (21:00)
[2020-06-07] MEDS: DIVALPROEX SODIUM 250 MG TAB...DR PO SCH (22:37)
[2020-06-07] MEDS: MELATONIN 5 MG TABLET PO SCH (22:38)
[2020-06-07] MEDS: TRAMADOL HCL 50 MG TAB PO PRN (22:39)
[2020-06-07] MEDS: ACETAMINOPHEN 325 MG TAB PO PRN (22:39)
[2020-06-08] VITALS: BP 140/76
[2020-06-08 04:00] VITALS: BP 160/91
[2020-06-08] MEDS: SODIUM CHLORIDE 0.9% 1000ML 1,000 ML IV SCH (04:10)
[2020-06-08] MEDS: CEFEPIME 1GM/NS 0.9% 50 ML 50 ML IV SCH ×2 (05:36→12:09)
[2020-06-08 06:52] LABS: ANION GAP 15.7 mmol/L (8-16); BLOOD UREA NITROGEN 8 mg/dL (7-26); BUN/CREATININE RATIO 15 (6-25); CALCIUM 8.5 mg/dL (8.4-10.2); CARBON DIOXIDE 24 mmol/L (22-29); CHLORIDE 102 mmol/L (98-107); CREATININE, SERUM 0.54 mg/dL (0.57-1.11); EST GLOMERULAR FILTRATION RATE > 60 ML/MIN (60-); GLUCOSE 163 mg/dL (74-118); POTASSIUM 3.7 mmol/L (3.5-5.1); SODIUM 138 mmol/L (136-145)
[2020-06-08 08:06] LABS: BASOPHILS % 0.2 % (0.0-1.0); EOSINOPHILS % 0.1 % (0.0-6.0); HEMATOCRIT 36.6 % (34.2-44.1); HEMOGLOBIN 12.1 g/dL (12.0-16.0); LYMPHOCYTES # (AUTO) 1.2 (1.0-3.2); LYMPHOCYTES % 13.1 % (18.0-39.1); MEAN CORPUSCULAR HEMOGLOBIN 28.4 pg (28-32); MEAN CORPUSCULAR HGB CONC 33.1 g/dL (31-35); MEAN CORPUSCULAR VOLUME 85.9 fL (81-99); MONOCYTES # (AUTO) 0.9 (0.2-0.8); MONOCYTES % 9.8 % (4.4-11.3); NEUTROPHILS # (AUTO) 7.1 (2.1-6.9); NEUTROPHILS % 76.4 % (38.7-80.0); PLATELET COUNT 156 x10e3/uL (140-360); RED BLOOD COUNT 4.26 x10e6/uL (3.6-5.1); RED CELL DISTRIBUTION WIDTH 14.5 % (11.7-14.4)
[2020-06-08 08:41] VITALS: BP 159/82
[2020-06-08] MEDS: INSULIN LISPRO 100 UNIT/1 ML 3ML VIAL SQ SCH ×4 (09:00→12:10)
[2020-06-08 09:05] VITALS: BP 159/82
[2020-06-08] MEDS: CHOLECALCIFEROL 1,000 UNIT TAB PO SCH (09:43)
[2020-06-08] MEDS: BUSPIRONE HCL 5 MG TAB PO SCH (09:43)
[2020-06-08] MEDS: PANTOPRAZOLE 40 MG 10ML VIAL IV SCH (09:43)
[2020-06-08] MEDS: METOPROLOL TARTRATE 25 MG TAB PO SCH (09:44)
[2020-06-08] MEDS: ISOSORBIDE MONONITRATE 20 MG TAB PO SCH (09:44)
[2020-06-08] MEDS: VALSARTAN 160 MG TAB PO SCH (09:48)
[2020-06-08] MEDS: ACETAMINOPHEN 325 MG TAB PO PRN (09:49)
[2020-06-08] MEDS: ONDANSETRON HCL INJ 2MG/ML 2ML 2 MG/ML VIAL IV PRN (10:01)
[2020-06-08] MEDS ORDERED: ONDANSETRON HCL 4 MG ORAL DISINTEGRATING TAB SL PRN (11:00)
[2020-06-08 12:11] VITALS: BP 106/67
[2020-06-08] MEDS ORDERED: BISACODYL 5 MG TAB EC PO ONE (12:15)
[2020-06-08] MEDS ORDERED: INSULIN LISPRO 100 UNIT/1 ML 3ML VIAL SQ SCH (16:30)
[2020-06-08] MEDS ORDERED: PANTOPRAZOLE SOD 40 MG TABEC PO SCH ×2 (16:30)
== END 2020-06-08 14:58 | DRG 853 ==
LOC: ER 08:45 → ERHOLD 10:09 → MED/SURG 11:41 → OBSVTOIN 06-02 12:57 → ICU 06-03 18:12 → IMCU 06-04 18:59 → MED/SURG2 06-06 19:46
PROVIDERS: ADMIT Internal Medicine; ATTEND Internal Medicine
PROC: 02HV33Z Insertion of Infusion Device into Superior Vena Cava, Percutaneous Approach (ICD-10-PCS; 2020-06-03)
PROC: 0UP Female Reproductive System, Removal (ICD-10-PCS; principal; 2020-06-07 07:00)
DX: A41.9 Sepsis, unspecified organism (principal); E11.10 Type 2 diabetes mellitus with ketoacidosis without coma; G93.41 Metabolic encephalopathy; N39.0 Urinary tract infection, site not specified; K57.92 Diverticulitis of intestine, part unspecified, without perforation or abscess without bleeding; E87.1 Hypo-osmolality and hyponatremia; E78.5 Hyperlipidemia, unspecified; B96.1 Klebsiella pneumoniae [K. pneumoniae] as the cause of diseases classified elsewhere; T83.721A Exposure of implanted vaginal mesh into vagina, initial encounter; Z20.828 Contact with and (suspected) exposure to other viral communicable diseases; E87.6 Hypokalemia; E83.39 Other disorders of phosphorus metabolism; R65.20 Severe sepsis without septic shock
CPT/HCPCS: 36415; 36569; 71045; 74176; 80048; 80053; 80061; 81001; 82550; 82553; 82948; 83036; 83690; 83735; 84100; 84443; 84484; 85025; 87040; 87086; 87186; 88300; 88302; 93005; 93306; 96372; 97139; 99284; G0378; J0360; J0692; J1815; J1817; J2001; J2405; J3475; J3480; J7030; J7050; Q0162; U0002

== ENCOUNTER 2020-06-22 12:47 | Inpatient (IN) | payer MEDICARE ==
[~2020-06-22] VITALS: Ht 162.6 cm; Wt 81.6 kg
[~2020-06-22 12:47] MED LIST changes: +ASPIRIN81 MG PO; +AZO URINARY P99.5 MG PO; +BENADRYL25 M1 PO; +EMETROL PO; +GABAPENTIN300 MG PO; +GLUCOSE4 GM PO; +METOPROLOL SUCC25 MG PO; +NITROGLYCERIN0.4 MG SL; +NYSTATIN15 GM TOP; +OMEPRAZOLE40 MG PO; +PEPTO-BISM525 MG/15 PO; +STOOL SOFTENER1 EACH PO; +SYMBICORT 16010.2 GM INH; +ULTRAM50 MG PO; +VALSARTAN-HCTZ1 EAC1 PO; +VALSARTAN160 MG PO; +VITAMIN D310 MCG PO; +VITAMIN D350 MCG PO
[2020-06-22 15:02] LABS: BASOPHILS # (AUTO) 0.1 (0.0-0.1); BASOPHILS % 0.3 % (0.0-1.0); EOSINOPHILS % 0.2 % (0.0-6.0); HEMATOCRIT 34.1 % (34.2-44.1); LYMPHOCYTES # (AUTO) 0.8 (1.0-3.2); LYMPHOCYTES % 4.2 % (18.0-39.1); MEAN CORPUSCULAR HEMOGLOBIN 27.9 pg (28-32); MEAN CORPUSCULAR HGB CONC 32.3 g/dL (31-35); MEAN CORPUSCULAR VOLUME 86.5 fL (81-99); MONOCYTES # (AUTO) 1.3 (0.2-0.8); MONOCYTES % 6.5 % (4.4-11.3); PLATELET COUNT 398 x10e3/uL (140-360); RED BLOOD COUNT 3.94 x10e6/uL (3.6-5.1); RED CELL DISTRIBUTION WIDTH 14.2 % (11.7-14.4)
[2020-06-22 15:11] LABS: INR 0.99; PARTIAL THROMBOPLASTIN TIME 23.2 seconds (23.8-35.5); PROTHROMBIN TIME 13.7 seconds (11.9-14.5)
[2020-06-22 15:21] LABS: ALANINE AMINOTRANSFERASE 7 IU/L (0-55); ALBUMIN 2.7 g/dL (3.5-5.0); ALBUMIN/GLOBULIN RATIO 0.6 (0.8-2.0); ALKALINE PHOSPHATASE 77 IU/L (40-150); ANION GAP 15.2 mmol/L (8-16); BLOOD UREA NITROGEN 8 mg/dL (7-26); BUN/CREATININE RATIO 13 (6-25); CALCIUM 8.9 mg/dL (8.4-10.2); CARBON DIOXIDE 26 mmol/L (22-29); CHLORIDE 98 mmol/L (98-107); CREATINE KINASE 14 IU/L (29-168); CREATININE, SERUM 0.61 mg/dL (0.57-1.11); EST GLOMERULAR FILTRATION RATE > 60 ML/MIN (60-); GLUCOSE 231 mg/dL (74-118); MAGNESIUM 1.2 MG/DL (1.3-2.1); POTASSIUM 4.2 mmol/L (3.5-5.1); SODIUM 135 mmol/L (136-145)
[2020-06-22] MEDS ORDERED: SODIUM CHLORIDE 0.9% 500ML 500 ML IV ONE (16:15)
[2020-06-22] MEDS ORDERED: SODIUM CHLORIDE 0.9% 50ML 50 ML ONE (16:29)
[2020-06-22] MEDS ORDERED: IOPAMIDOL 370 MG/ML 200 ML INFUS..BTL INJ ONE (16:29)
[2020-06-22] MEDS: CEFTRIAXONE SOD 1 GM/NS 50 ML 50 ML IV SCH (17:19)
[2020-06-22] MEDS ORDERED: SODIUM CHLORIDE 0.9% 1000ML 1,000 ML IV SCH (17:45)
[2020-06-22] MEDS ORDERED: ONDANSETRON HCL INJ 2MG/ML 2ML 2 MG/ML VIAL IV PRN (17:45)
[2020-06-22] MEDS ORDERED: AZITHROMYCIN 500MG/NS 250 ML 250 ML IV SCH (18:00)
[2020-06-22 18:09] LABS: CLARITY,URINE HAZY (CLEAR); COLOR,URINE YELLOW (YELLOW); KETONES,URINE 1+ (NEGATIVE); LEUKOCYTE ESTERASE ,URINE SMALL (NEGATIVE); NITRITE,URINE NEGATIVE (NEGATIVE); PROTEIN,URINE DIPSTICK 2+ (NEGATIVE); URINE UROBILINOGEN 0.2 mg/dL (0.2 - 1)
[2020-06-22 18:22] LABS: BACTERIA,URINE MODERATE /HPF; EPITHELIAL CELLS,URINE MODERATE /LPF; RBC,URINE 0-5 /HPF (0-5); TRANSITIONAL EPI CELLS,URINE FEW
[2020-06-22] MEDS ORDERED: ACETAMINOPHEN 325 MG TAB PO ONE (20:15)
[2020-06-22] MEDS ORDERED: ACETAMINOPHEN 325 MG TAB ONE (20:24)
[2020-06-22 20:44] VITALS: BP 126/71
[2020-06-22] MEDS ORDERED: ACETAMINOPHEN 325 MG TAB PO PRN (21:30)
[2020-06-22] MEDS ORDERED: HYDRALAZINE HCL 20 MG/ML VIAL IV PRN (21:30)
[2020-06-22] MEDS ORDERED: METOPROLOL TARTRATE INJ 1 MG/ML VIAL IV PRN (21:30)
[2020-06-22] MEDS ORDERED: MAGNESIUM SULFATE 2GM/50ML 50 ML IV ONE (21:30)
[2020-06-22] MEDS ORDERED: POLYETHYLENE GLYCOL 3350 17 GM PACK PO PRN (21:30)
[2020-06-22] MEDS ORDERED: DEXTROSE 50% SYRINGE 50 ML IV PRN (21:45)
[2020-06-22] MEDS: DOCUSATE SODIUM 100 MG CAP PO SCH (21:45)
[2020-06-22] MEDS ORDERED: NITROGLYCERIN 0.4 MG SUBL SL PRN (21:45)
[2020-06-22] MEDS: METOPROLOL SUCCINATE 25 MG TAB XL PO SCH (21:45)
[2020-06-22] MEDS: GABAPENTIN 300 MG CAP PO SCH (21:45)
[2020-06-22] MEDS: DIVALPROEX SODIUM 250 MG TAB...DR PO SCH (21:45)
[2020-06-22] MEDS: INSULIN LISPRO 100 UNIT/1 ML 3ML VIAL SQ SCH (21:45)
[2020-06-22] MEDS: BUSPIRONE HCL 5 MG TAB PO SCH (21:45)
[2020-06-22] MEDS ORDERED: DIPHENHYDRAMINE HCL 25 MG CAP PO PRN (21:45)
[2020-06-22] MEDS ORDERED: MAGNESIUM SULF 1GRAM/DEXTROSE 100 ML IV ONE (23:30)
[2020-06-23] VITALS (9 sets, daily range): BP systolic 146–179; BP diastolic 74–111
[2020-06-23 01:32] LABS: CREATINE KINASE 23 IU/L (29-168)
[2020-06-23 05:04] LABS: BASOPHILS # (AUTO) 0.1 (0.0-0.1); BASOPHILS % 0.3 % (0.0-1.0); EOSINOPHILS % 0.1 % (0.0-6.0); HEMATOCRIT 34.3 % (34.2-44.1); HEMOGLOBIN 10.9 g/dL (12.0-16.0); LYMPHOCYTES # (AUTO) 0.9 (1.0-3.2); LYMPHOCYTES % 5.5 % (18.0-39.1); MEAN CORPUSCULAR HEMOGLOBIN 27.7 pg (28-32); MEAN CORPUSCULAR HGB CONC 31.8 g/dL (31-35); MEAN CORPUSCULAR VOLUME 87.3 fL (81-99); MONOCYTES # (AUTO) 0.9 (0.2-0.8); MONOCYTES % 5.2 % (4.4-11.3); NEUTROPHILS % 88.1 % (38.7-80.0); PLATELET COUNT 393 x10e3/uL (140-360); RED BLOOD COUNT 3.93 x10e6/uL (3.6-5.1); RED CELL DISTRIBUTION WIDTH 14.3 % (11.7-14.4)
[2020-06-23 05:22] LABS: ALANINE AMINOTRANSFERASE < 6 IU/L (0-55); ALBUMIN 2.5 g/dL (3.5-5.0); ALBUMIN/GLOBULIN RATIO 0.6 (0.8-2.0); ALKALINE PHOSPHATASE 74 IU/L (40-150); BLOOD UREA NITROGEN 8 mg/dL (7-26); BUN/CREATININE RATIO 15 (6-25); CALCIUM 8.6 mg/dL (8.4-10.2); CARBON DIOXIDE 26 mmol/L (22-29); CHLORIDE 99 mmol/L (98-107); CREATININE, SERUM 0.55 mg/dL (0.57-1.11); EST GLOMERULAR FILTRATION RATE > 60 ML/MIN (60-); GLUCOSE 240 mg/dL (74-118); SODIUM 137 mmol/L (136-145)
[2020-06-23] MEDS ORDERED: BISACODYL 10 MG SUPP PR ONE (06:00)
[2020-06-23] MEDS: CEFTRIAXONE SOD 1 GM/NS 50 ML 50 ML IV SCH (06:00)
[2020-06-23] MEDS: INSULIN LISPRO 100 UNIT/1 ML 3ML VIAL SQ SCH ×4 (07:30→21:00)
[2020-06-23 07:39] LABS: CREATINE KINASE 24 IU/L (29-168)
[2020-06-23] MEDS: BUSPIRONE HCL 5 MG TAB PO SCH ×2 (09:21→17:16)
[2020-06-23] MEDS: FAMOTIDINE 20 MG/2 ML VIAL IV SCH ×2 (09:21→17:16)
[2020-06-23] MEDS: VALSARTAN 160 MG TAB PO SCH (09:21)
[2020-06-23] MEDS: DOCUSATE SODIUM 100 MG CAP PO SCH ×2 (09:21→17:16)
[2020-06-23] MEDS: ASPIRIN 81 MG CHEW TAB PO SCH (09:21)
[2020-06-23] MEDS: PRAVASTATIN 20 MG TAB PO SCH (09:22)
[2020-06-23] MEDS: ISOSORBIDE MONONITRATE 20 MG TAB PO SCH (09:22)
[2020-06-23] MEDS: GABAPENTIN 300 MG CAP PO SCH ×3 (09:22→22:04)
[2020-06-23] MEDS: METOPROLOL SUCCINATE 25 MG TAB XL PO SCH ×2 (09:22→17:17)
[2020-06-23] MEDS: VANCOMYCIN 1GM/NS 250 ML 250 ML IV SCH (16:20)
[2020-06-23] MEDS: ENOXAPARIN SOD INJ 40 MG/0.4 ML SYR SC SCH (17:16)
[2020-06-23] MEDS: MEROPENEM 1GM 100 ML IV SCH (18:27)
[2020-06-23] MEDS ORDERED: ALBUTEROL/IPRATROPIUM 3 ML NEB NEB PRN (21:45)
[2020-06-23] MEDS ORDERED: GUAIFENESIN 600MG/DEXTROMETHORPHAN 30MG TABSR PO PRN (21:45)
[2020-06-23] MEDS ORDERED: ACETAMINOPHEN 1000 MG/100 ML IV ONE (21:45)
[2020-06-23] MEDS: AZITHROMYCIN 500MG/NS 250 ML 250 ML IV SCH (22:04)
[2020-06-23] MEDS: DIVALPROEX SODIUM 250 MG TAB...DR PO SCH (22:04)
[2020-06-23] MEDS ORDERED: ACETAMINOPHEN 1000 MG/100 ML 100 ML IV ONE (23:03)
[2020-06-24] VITALS (8 sets, daily range): BP systolic 111–169; BP diastolic 54–100
[2020-06-24] MEDS: MEROPENEM 1GM 100 ML IV SCH ×3 (02:47→18:26)
[2020-06-24] MEDS: VANCOMYCIN 1GM/NS 250 ML 250 ML IV SCH ×2 (05:22→16:30)
[2020-06-24 06:33] LABS: BASOPHILS % 0.2 % (0.0-1.0); EOSINOPHILS % 0.1 % (0.0-6.0); HEMATOCRIT 34.5 % (34.2-44.1); HEMOGLOBIN 10.7 g/dL (12.0-16.0); LYMPHOCYTES # (AUTO) 1.2 (1.0-3.2); MEAN CORPUSCULAR HEMOGLOBIN 27.6 pg (28-32); MEAN CORPUSCULAR VOLUME 88.9 fL (81-99); MONOCYTES # (AUTO) 1.1 (0.2-0.8); MONOCYTES % 6.4 % (4.4-11.3); NEUTROPHILS # (AUTO) 14.4 (2.1-6.9); PLATELET COUNT 372 x10e3/uL (140-360); RED BLOOD COUNT 3.88 x10e6/uL (3.6-5.1); RED CELL DISTRIBUTION WIDTH 14.8 % (11.7-14.4)
[2020-06-24 06:53] LABS: ANION GAP 17.8 mmol/L (8-16); BLOOD UREA NITROGEN 13 mg/dL (7-26); BUN/CREATININE RATIO 23 (6-25); CALCIUM 8.4 mg/dL (8.4-10.2); CARBON DIOXIDE 24 mmol/L (22-29); CHLORIDE 100 mmol/L (98-107); CREATININE, SERUM 0.56 mg/dL (0.57-1.11); EST GLOMERULAR FILTRATION RATE > 60 ML/MIN (60-); GLUCOSE 206 mg/dL (74-118); MAGNESIUM 1.8 MG/DL (1.3-2.1); PHOSPHORUS 2.4 MG/DL (2.3-4.7); POTASSIUM 3.8 mmol/L (3.5-5.1); SODIUM 138 mmol/L (136-145)
[2020-06-24] MEDS: INSULIN LISPRO 100 UNIT/1 ML 3ML VIAL SQ SCH ×4 (07:30→21:00)
[2020-06-24] MEDS: BUSPIRONE HCL 5 MG TAB PO SCH ×2 (09:16→18:26)
[2020-06-24] MEDS: ASPIRIN 81 MG CHEW TAB PO SCH (09:16)
[2020-06-24] MEDS: FAMOTIDINE 20 MG/2 ML VIAL IV SCH ×2 (09:16→18:26)
[2020-06-24] MEDS: VALSARTAN 160 MG TAB PO SCH (09:16)
[2020-06-24] MEDS: DOCUSATE SODIUM 100 MG CAP PO SCH ×2 (09:16→18:26)
[2020-06-24] MEDS: ISOSORBIDE MONONITRATE 20 MG TAB PO SCH (09:17)
[2020-06-24] MEDS: METOPROLOL SUCCINATE 25 MG TAB XL PO SCH ×2 (09:17→18:26)
[2020-06-24] MEDS: PRAVASTATIN 20 MG TAB PO SCH (09:17)
[2020-06-24] MEDS: GABAPENTIN 300 MG CAP PO SCH ×3 (09:17→21:25)
[2020-06-24] MEDS: BUDESONIDE/FORMOTEROL 160/4.5MCG INHALER INH SCH (10:00)
[2020-06-24] MEDS: ACETAMINOPHEN 325 MG TAB PO PRN (14:00)
[2020-06-24] MEDS: ENOXAPARIN SOD INJ 40 MG/0.4 ML SYR SC SCH (18:26)
[2020-06-24] MEDS: AZITHROMYCIN 500MG/NS 250 ML 250 ML IV SCH (21:02)
[2020-06-24] MEDS: DIVALPROEX SODIUM 250 MG TAB...DR PO SCH (21:25)
[2020-06-25] VITALS (7 sets, daily range): BP systolic 133–155; BP diastolic 68–96
[2020-06-25] MEDS: MEROPENEM 1GM 100 ML IV SCH ×3 (02:50→18:09)
[2020-06-25 06:03] LABS: BASOPHILS % 0.3 % (0.0-1.0); EOSINOPHILS # (AUTO) 0.1 (0.0-0.4); EOSINOPHILS % 0.6 % (0.0-6.0); HEMATOCRIT 29.4 % (34.2-44.1); HEMOGLOBIN 9.4 g/dL (12.0-16.0); LYMPHOCYTES # (AUTO) 1.2 (1.0-3.2); LYMPHOCYTES % 9.8 % (18.0-39.1); MEAN CORPUSCULAR HEMOGLOBIN 28.1 pg (28-32); MEAN CORPUSCULAR VOLUME 87.8 fL (81-99); MONOCYTES # (AUTO) 0.7 (0.2-0.8); MONOCYTES % 5.9 % (4.4-11.3); NEUTROPHILS # (AUTO) 9.9 (2.1-6.9); NEUTROPHILS % 82.8 % (38.7-80.0); PLATELET COUNT 372 x10e3/uL (140-360); RED BLOOD COUNT 3.35 x10e6/uL (3.6-5.1); RED CELL DISTRIBUTION WIDTH 14.3 % (11.7-14.4)
[2020-06-25 06:22] LABS: ALBUMIN 2.2 g/dL (3.5-5.0); ALBUMIN/GLOBULIN RATIO 0.6 (0.8-2.0); ALKALINE PHOSPHATASE 72 IU/L (40-150); ANION GAP 13.4 mmol/L (8-16); BLOOD UREA NITROGEN 11 mg/dL (7-26); BUN/CREATININE RATIO 23 (6-25); CALCIUM 8.1 mg/dL (8.4-10.2); CARBON DIOXIDE 23 mmol/L (22-29); CHLORIDE 103 mmol/L (98-107); CREATININE, SERUM 0.48 mg/dL (0.57-1.11); EST GLOMERULAR FILTRATION RATE > 60 ML/MIN (60-); GLUCOSE 122 mg/dL (74-118); POTASSIUM 3.4 mmol/L (3.5-5.1); SODIUM 136 mmol/L (136-145)
[2020-06-25] MEDS: VANCOMYCIN 1GM/NS 250 ML 250 ML IV SCH ×2 (06:25→16:00)
[2020-06-25 06:38] LABS: ALANINE AMINOTRANSFERASE < 6 IU/L (0-55)
[2020-06-25] MEDS: INSULIN LISPRO 100 UNIT/1 ML 3ML VIAL SQ SCH ×4 (07:30→21:17)
[2020-06-25] MEDS: FAMOTIDINE 20 MG/2 ML VIAL IV SCH ×2 (09:24→17:51)
[2020-06-25] MEDS: ASPIRIN 81 MG CHEW TAB PO SCH (09:24)
[2020-06-25] MEDS: VALSARTAN 160 MG TAB PO SCH (09:24)
[2020-06-25] MEDS: BUSPIRONE HCL 5 MG TAB PO SCH ×2 (09:24→17:51)
[2020-06-25] MEDS: DOCUSATE SODIUM 100 MG CAP PO SCH ×2 (09:24→17:51)
[2020-06-25] MEDS: GABAPENTIN 300 MG CAP PO SCH ×3 (09:25→20:53)
[2020-06-25] MEDS: ISOSORBIDE MONONITRATE 20 MG TAB PO SCH (09:25)
[2020-06-25] MEDS: PRAVASTATIN 20 MG TAB PO SCH (09:25)
[2020-06-25] MEDS: METOPROLOL SUCCINATE 25 MG TAB XL PO SCH ×2 (09:25→17:51)
[2020-06-25] MEDS ORDERED: POTASSIUM CHLORIDE 20 MEQ TAB CR PO ONE (13:00)
[2020-06-25] MEDS: ENOXAPARIN SOD INJ 40 MG/0.4 ML SYR SC SCH (17:51)
[2020-06-25] MEDS: AZITHROMYCIN 500MG/NS 250 ML 250 ML IV SCH (19:47)
[2020-06-25] MEDS: TRAMADOL HCL 50 MG TAB PO PRN (19:48)
[2020-06-25] MEDS: DIVALPROEX SODIUM 250 MG TAB...DR PO SCH (20:53)
[2020-06-26] VITALS (8 sets, daily range): BP systolic 118–156; BP diastolic 89–101
[2020-06-26] MEDS: MEROPENEM 1GM 100 ML IV SCH ×3 (01:45→18:21)
[2020-06-26] MEDS: VANCOMYCIN 1GM/NS 250 ML 250 ML IV SCH ×2 (03:55→16:48)
[2020-06-26 06:35] LABS: BASOPHILS % 0.2 % (0.0-1.0); EOSINOPHILS % 0.3 % (0.0-6.0); HEMATOCRIT 31.1 % (34.2-44.1); LYMPHOCYTES # (AUTO) 0.9 (1.0-3.2); LYMPHOCYTES % 10.9 % (18.0-39.1); MEAN CORPUSCULAR HEMOGLOBIN 27.5 pg (28-32); MEAN CORPUSCULAR HGB CONC 32.2 g/dL (31-35); MEAN CORPUSCULAR VOLUME 85.7 fL (81-99); MONOCYTES # (AUTO) 0.7 (0.2-0.8); MONOCYTES % 8.2 % (4.4-11.3); NEUTROPHILS # (AUTO) 6.9 (2.1-6.9); NEUTROPHILS % 80.1 % (38.7-80.0); PLATELET COUNT 376 x10e3/uL (140-360); RED BLOOD COUNT 3.63 x10e6/uL (3.6-5.1); RED CELL DISTRIBUTION WIDTH 14.1 % (11.7-14.4)
[2020-06-26 07:02] LABS: ANION GAP 13.8 mmol/L (8-16); BLOOD UREA NITROGEN 8 mg/dL (7-26); BUN/CREATININE RATIO 17 (6-25); CALCIUM 8.1 mg/dL (8.4-10.2); CARBON DIOXIDE 23 mmol/L (22-29); CHLORIDE 103 mmol/L (98-107); CREATININE, SERUM 0.48 mg/dL (0.57-1.11); EST GLOMERULAR FILTRATION RATE > 60 ML/MIN (60-); GLUCOSE 190 mg/dL (74-118); POTASSIUM 3.8 mmol/L (3.5-5.1); SODIUM 136 mmol/L (136-145)
[2020-06-26] MEDS: DOCUSATE SODIUM 100 MG CAP PO SCH ×3 (09:00→18:20)
[2020-06-26] MEDS: BUSPIRONE HCL 5 MG TAB PO SCH ×2 (09:01→18:20)
[2020-06-26] MEDS: PRAVASTATIN 20 MG TAB PO SCH (09:01)
[2020-06-26] MEDS: FAMOTIDINE 20 MG/2 ML VIAL IV SCH ×2 (09:01→18:20)
[2020-06-26] MEDS: VALSARTAN 160 MG TAB PO SCH (09:01)
[2020-06-26] MEDS: BUDESONIDE/FORMOTEROL 160/4.5MCG INHALER INH SCH ×2 (09:01→09:02)
[2020-06-26] MEDS: ISOSORBIDE MONONITRATE 20 MG TAB PO SCH (09:01)
[2020-06-26] MEDS: GABAPENTIN 300 MG CAP PO SCH ×3 (09:01→21:26)
[2020-06-26] MEDS: ASPIRIN 81 MG CHEW TAB PO SCH (09:01)
[2020-06-26] MEDS: METOPROLOL SUCCINATE 25 MG TAB XL PO SCH ×2 (09:02→18:21)
[2020-06-26] MEDS: TRAMADOL HCL 50 MG TAB PO PRN ×2 (09:03→17:12)
[2020-06-26] MEDS: INSULIN LISPRO 100 UNIT/1 ML 3ML VIAL SQ SCH ×4 (13:40→21:00)
[2020-06-26] MEDS: ENOXAPARIN SOD INJ 40 MG/0.4 ML SYR SC SCH (18:21)
[2020-06-26] MEDS: DIVALPROEX SODIUM 250 MG TAB...DR PO SCH (21:26)
[2020-06-27] VITALS (8 sets, daily range): BP systolic 132–160; BP diastolic 73–96
[2020-06-27] MEDS: ACETAMINOPHEN 325 MG TAB PO PRN ×2 (00:47→08:31)
[2020-06-27] MEDS: MEROPENEM 1GM 100 ML IV SCH ×3 (02:05→18:13)
[2020-06-27] MEDS: VANCOMYCIN 1GM/NS 250 ML 250 ML IV SCH ×2 (03:26→16:25)
[2020-06-27 06:06] LABS: BASOPHILS % 0.4 % (0.0-1.0); EOSINOPHILS # (AUTO) 0.1 (0.0-0.4); HEMATOCRIT 30.9 % (34.2-44.1); HEMOGLOBIN 9.8 g/dL (12.0-16.0); LYMPHOCYTES # (AUTO) 1.4 (1.0-3.2); LYMPHOCYTES % 18.7 % (18.0-39.1); MEAN CORPUSCULAR HEMOGLOBIN 27.6 pg (28-32); MEAN CORPUSCULAR HGB CONC 31.7 g/dL (31-35); MONOCYTES # (AUTO) 0.8 (0.2-0.8); MONOCYTES % 10.9 % (4.4-11.3); NEUTROPHILS # (AUTO) 5.3 (2.1-6.9); NEUTROPHILS % 68.2 % (38.7-80.0); PLATELET COUNT 343 x10e3/uL (140-360); RED BLOOD COUNT 3.55 x10e6/uL (3.6-5.1); RED CELL DISTRIBUTION WIDTH 14.1 % (11.7-14.4)
[2020-06-27 07:01] LABS: ANION GAP 15.7 mmol/L (8-16); BLOOD UREA NITROGEN 7 mg/dL (7-26); BUN/CREATININE RATIO 16 (6-25); CALCIUM 7.9 mg/dL (8.4-10.2); CARBON DIOXIDE 23 mmol/L (22-29); CHLORIDE 101 mmol/L (98-107); CREATININE, SERUM 0.45 mg/dL (0.57-1.11); EST GLOMERULAR FILTRATION RATE > 60 ML/MIN (60-); GLUCOSE 145 mg/dL (74-118); POTASSIUM 3.7 mmol/L (3.5-5.1); SODIUM 136 mmol/L (136-145)
[2020-06-27] MEDS: FAMOTIDINE 20 MG/2 ML VIAL IV SCH ×2 (08:26→16:25)
[2020-06-27] MEDS: METOPROLOL SUCCINATE 25 MG TAB XL PO SCH ×2 (08:27→16:27)
[2020-06-27] MEDS: GABAPENTIN 300 MG CAP PO SCH ×3 (08:27→20:32)
[2020-06-27] MEDS: ISOSORBIDE MONONITRATE 20 MG TAB PO SCH (08:27)
[2020-06-27] MEDS: VALSARTAN 160 MG TAB PO SCH (08:28)
[2020-06-27] MEDS: DOCUSATE SODIUM 100 MG CAP PO SCH ×2 (08:30→16:27)
[2020-06-27] MEDS: BUSPIRONE HCL 5 MG TAB PO SCH ×2 (08:31→16:27)
[2020-06-27] MEDS: ASPIRIN 81 MG CHEW TAB PO SCH (08:31)
[2020-06-27] MEDS: PRAVASTATIN 20 MG TAB PO SCH (08:33)
[2020-06-27] MEDS: BUDESONIDE/FORMOTEROL 160/4.5MCG INHALER INH SCH (09:00)
[2020-06-27] MEDS: INSULIN LISPRO 100 UNIT/1 ML 3ML VIAL SQ SCH ×4 (09:34→20:32)
[2020-06-27] MEDS: TRAMADOL HCL 50 MG TAB PO PRN (14:17)
[2020-06-27] MEDS: ENOXAPARIN SOD INJ 40 MG/0.4 ML SYR SC SCH (16:52)
[2020-06-27] MEDS ORDERED: METHYLPREDNISOLONE SOD SUCC 125 MG/2ML VIAL IV ONE (17:30)
[2020-06-27] MEDS: DIVALPROEX SODIUM 250 MG TAB...DR PO SCH (20:32)
[2020-06-28] VITALS (8 sets, daily range): BP systolic 128–156; BP diastolic 69–89
[2020-06-28] MEDS: MEROPENEM 1GM 100 ML IV SCH ×3 (01:09→17:02)
[2020-06-28] MEDS: VANCOMYCIN 1GM/NS 250 ML 250 ML IV SCH ×2 (03:44→16:22)
[2020-06-28 06:26] LABS: BLOOD UREA NITROGEN 9 mg/dL (7-26); BUN/CREATININE RATIO 17 (6-25); CALCIUM 8.2 mg/dL (8.4-10.2); CARBON DIOXIDE 22 mmol/L (22-29); CHLORIDE 99 mmol/L (98-107); CREATININE, SERUM 0.54 mg/dL (0.57-1.11); EST GLOMERULAR FILTRATION RATE > 60 ML/MIN (60-); GLUCOSE 309 mg/dL (74-118); SODIUM 136 mmol/L (136-145)
[2020-06-28 06:51] LABS: BASOPHILS % 0.3 % (0.0-1.0); HEMATOCRIT 32.9 % (34.2-44.1); HEMOGLOBIN 10.3 g/dL (12.0-16.0); LYMPHOCYTES # (AUTO) 0.8 (1.0-3.2); LYMPHOCYTES % 12.6 % (18.0-39.1); MEAN CORPUSCULAR HEMOGLOBIN 27.2 pg (28-32); MEAN CORPUSCULAR HGB CONC 31.3 g/dL (31-35); MEAN CORPUSCULAR VOLUME 86.8 fL (81-99); MONOCYTES # (AUTO) 0.1 (0.2-0.8); MONOCYTES % 2.3 % (4.4-11.3); PLATELET COUNT 394 x10e3/uL (140-360); RED BLOOD COUNT 3.79 x10e6/uL (3.6-5.1); RED CELL DISTRIBUTION WIDTH 13.9 % (11.7-14.4)
[2020-06-28] MEDS: INSULIN LISPRO 100 UNIT/1 ML 3ML VIAL SQ SCH ×4 (07:30→21:26)
[2020-06-28] MEDS: TRAMADOL HCL 50 MG TAB PO PRN (08:45)
[2020-06-28] MEDS: GABAPENTIN 300 MG CAP PO SCH ×3 (08:50→21:26)
[2020-06-28] MEDS: FAMOTIDINE 20 MG/2 ML VIAL IV SCH ×2 (08:50→16:25)
[2020-06-28] MEDS: DOCUSATE SODIUM 100 MG CAP PO SCH ×2 (08:50→16:25)
[2020-06-28] MEDS: BUSPIRONE HCL 5 MG TAB PO SCH ×2 (08:50→16:25)
[2020-06-28] MEDS: VALSARTAN 160 MG TAB PO SCH (08:50)
[2020-06-28] MEDS: PRAVASTATIN 20 MG TAB PO SCH (08:50)
[2020-06-28] MEDS: ASPIRIN 81 MG CHEW TAB PO SCH (08:50)
[2020-06-28] MEDS: ISOSORBIDE MONONITRATE 20 MG TAB PO SCH (08:50)
[2020-06-28] MEDS: BALSAM PERU/CASTOR OIL 60 GM OINT...G. TP SCH (08:51)
[2020-06-28] MEDS: METOPROLOL SUCCINATE 25 MG TAB XL PO SCH ×2 (08:51→16:25)
[2020-06-28] MEDS: BUDESONIDE/FORMOTEROL 160/4.5MCG INHALER INH SCH (09:00)
[2020-06-28] MEDS: ENOXAPARIN SOD INJ 40 MG/0.4 ML SYR SC SCH (16:53)
[2020-06-28] MEDS: DIVALPROEX SODIUM 250 MG TAB...DR PO SCH (21:26)
[2020-06-28] MEDS ORDERED: INSULIN GLARGINE 100 UNITS/ML VIAL SQ SCH (23:15)
[2020-06-29] VITALS (8 sets, daily range): BP systolic 126–147; BP diastolic 70–81
[2020-06-29] MEDS: MEROPENEM 1GM 100 ML IV SCH ×3 (01:18→18:29)
[2020-06-29] MEDS: VANCOMYCIN 1GM/NS 250 ML 250 ML IV SCH ×2 (04:00→17:04)
[2020-06-29 06:13] LABS: BASOPHILS % 0.1 % (0.0-1.0); EOSINOPHILS # (AUTO) 0.1 (0.0-0.4); EOSINOPHILS % 0.6 % (0.0-6.0); HEMATOCRIT 29.8 % (34.2-44.1); HEMOGLOBIN 9.5 g/dL (12.0-16.0); LYMPHOCYTES # (AUTO) 2.2 (1.0-3.2); LYMPHOCYTES % 28.1 % (18.0-39.1); MEAN CORPUSCULAR HEMOGLOBIN 27.4 pg (28-32); MEAN CORPUSCULAR HGB CONC 31.9 g/dL (31-35); MEAN CORPUSCULAR VOLUME 85.9 fL (81-99); MONOCYTES # (AUTO) 0.7 (0.2-0.8); MONOCYTES % 8.8 % (4.4-11.3); NEUTROPHILS # (AUTO) 4.9 (2.1-6.9); NEUTROPHILS % 61.5 % (38.7-80.0); PLATELET COUNT 392 x10e3/uL (140-360); RED BLOOD COUNT 3.47 x10e6/uL (3.6-5.1); RED CELL DISTRIBUTION WIDTH 14.2 % (11.7-14.4)
[2020-06-29 06:35] LABS: ANION GAP 13.3 mmol/L (8-16); BLOOD UREA NITROGEN 11 mg/dL (7-26); BUN/CREATININE RATIO 21 (6-25); CALCIUM 8.1 mg/dL (8.4-10.2); CARBON DIOXIDE 25 mmol/L (22-29); CHLORIDE 102 mmol/L (98-107); CREATININE, SERUM 0.52 mg/dL (0.57-1.11); EST GLOMERULAR FILTRATION RATE > 60 ML/MIN (60-); GLUCOSE 198 mg/dL (74-118); MAGNESIUM 1.4 MG/DL (1.3-2.1); PHOSPHORUS 2.7 MG/DL (2.3-4.7); POTASSIUM 3.3 mmol/L (3.5-5.1); SODIUM 137 mmol/L (136-145)
[2020-06-29] MEDS: INSULIN LISPRO 100 UNIT/1 ML 3ML VIAL SQ SCH ×4 (08:15→20:34)
[2020-06-29] MEDS: TRAMADOL HCL 50 MG TAB PO PRN (08:34)
[2020-06-29] MEDS: VALSARTAN 160 MG TAB PO SCH (08:35)
[2020-06-29] MEDS: METFORMIN HCL 500 MG TAB PO SCH ×2 (08:35→17:00)
[2020-06-29] MEDS: METOPROLOL SUCCINATE 25 MG TAB XL PO SCH ×2 (08:36→17:01)
[2020-06-29] MEDS: PRAVASTATIN 20 MG TAB PO SCH (08:36)
[2020-06-29] MEDS: ASPIRIN 81 MG CHEW TAB PO SCH (10:55)
[2020-06-29] MEDS: ISOSORBIDE MONONITRATE 20 MG TAB PO SCH (10:56)
[2020-06-29] MEDS: DOCUSATE SODIUM 100 MG CAP PO SCH ×2 (10:56→17:00)
[2020-06-29] MEDS: BUSPIRONE HCL 5 MG TAB PO SCH ×2 (10:56→16:59)
[2020-06-29] MEDS: GLIPIZIDE 5 MG TAB PO SCH (10:56)
[2020-06-29] MEDS: SENNA-S TABLET PO PRN (10:57)
[2020-06-29] MEDS: HYDROCODONE/APAP 5MG-325MG TAB PO PRN (10:58)
[2020-06-29] MEDS ORDERED: MAGNESIUM SULFATE 2GM/50ML 50 ML IV ONE ×2 (11:00→13:00)
[2020-06-29] MEDS: BALSAM PERU/CASTOR OIL 60 GM OINT...G. TP SCH (11:04)
[2020-06-29] MEDS: GABAPENTIN 300 MG CAP PO SCH ×3 (11:13→20:34)
[2020-06-29] MEDS: FAMOTIDINE 20 MG/2 ML VIAL IV SCH ×2 (11:13→17:07)
[2020-06-29] MEDS: ALBUTEROL/IPRATROPIUM 3 ML NEB NEB SCH ×2 (15:14→19:30)
[2020-06-29] MEDS ORDERED: POTASSIUM CHLORIDE 20 MEQ TAB CR PO ONE (15:30)
[2020-06-29] MEDS: ACETAMINOPHEN/CODEINE 300MG - 30MG TAB PO PRN (16:57)
[2020-06-29] MEDS: ENOXAPARIN SOD INJ 40 MG/0.4 ML SYR SC SCH (17:07)
[2020-06-29] MEDS: BUDESONIDE/FORMOTEROL 160/4.5MCG INHALER INH SCH (19:30)
[2020-06-29] MEDS: DIVALPROEX SODIUM 250 MG TAB...DR PO SCH (20:34)
[2020-06-30] VITALS (8 sets, daily range): BP systolic 134–164; BP diastolic 72–98
[2020-06-30] MEDS: ALBUTEROL/IPRATROPIUM 3 ML NEB NEB SCH ×5 (01:00→21:51)
[2020-06-30] MEDS: MEROPENEM 1GM 100 ML IV SCH ×2 (01:06→11:16)
[2020-06-30] MEDS: VANCOMYCIN 1GM/NS 250 ML 250 ML IV SCH (04:00)
[2020-06-30] MEDS: HYDROCODONE/APAP 5MG-325MG TAB PO PRN ×2 (04:26→10:57)
[2020-06-30 06:49] LABS: BASOPHILS % 0.3 % (0.0-1.0); EOSINOPHILS # (AUTO) 0.1 (0.0-0.4); EOSINOPHILS % 1.7 % (0.0-6.0); HEMATOCRIT 30.3 % (34.2-44.1); HEMOGLOBIN 9.6 g/dL (12.0-16.0); LYMPHOCYTES # (AUTO) 1.7 (1.0-3.2); LYMPHOCYTES % 23.7 % (18.0-39.1); MEAN CORPUSCULAR HEMOGLOBIN 27.4 pg (28-32); MEAN CORPUSCULAR HGB CONC 31.7 g/dL (31-35); MEAN CORPUSCULAR VOLUME 86.3 fL (81-99); MONOCYTES # (AUTO) 0.7 (0.2-0.8); MONOCYTES % 9.4 % (4.4-11.3); NEUTROPHILS # (AUTO) 4.5 (2.1-6.9); NEUTROPHILS % 63.8 % (38.7-80.0); PLATELET COUNT 361 x10e3/uL (140-360); RED BLOOD COUNT 3.51 x10e6/uL (3.6-5.1); RED CELL DISTRIBUTION WIDTH 14.6 % (11.7-14.4)
[2020-06-30 06:58] LABS: ANION GAP 14.9 mmol/L (8-16); BLOOD UREA NITROGEN 7 mg/dL (7-26); BUN/CREATININE RATIO 15 (6-25); CARBON DIOXIDE 25 mmol/L (22-29); CHLORIDE 102 mmol/L (98-107); CREATININE, SERUM 0.47 mg/dL (0.57-1.11); EST GLOMERULAR FILTRATION RATE > 60 ML/MIN (60-); GLUCOSE 164 mg/dL (74-118); POTASSIUM 3.9 mmol/L (3.5-5.1); SODIUM 138 mmol/L (136-145)
[2020-06-30] MEDS: INSULIN LISPRO 100 UNIT/1 ML 3ML VIAL SQ SCH ×4 (07:30→21:00)
[2020-06-30] MEDS: BUDESONIDE/FORMOTEROL 160/4.5MCG INHALER INH SCH ×2 (08:00→14:48)
[2020-06-30] MEDS: DOCUSATE SODIUM 100 MG CAP PO SCH ×2 (11:08→16:51)
[2020-06-30] MEDS: BUSPIRONE HCL 5 MG TAB PO SCH ×2 (11:08→16:51)
[2020-06-30] MEDS: ASPIRIN 81 MG CHEW TAB PO SCH (11:08)
[2020-06-30] MEDS: METFORMIN HCL 500 MG TAB PO SCH ×2 (11:09→16:51)
[2020-06-30] MEDS: VALSARTAN 160 MG TAB PO SCH (11:09)
[2020-06-30] MEDS: GLIPIZIDE 5 MG TAB PO SCH (11:09)
[2020-06-30] MEDS: METOPROLOL SUCCINATE 25 MG TAB XL PO SCH ×2 (11:10→16:51)
[2020-06-30] MEDS: GABAPENTIN 300 MG CAP PO SCH ×3 (11:10→20:05)
[2020-06-30] MEDS: ISOSORBIDE MONONITRATE 20 MG TAB PO SCH (11:10)
[2020-06-30] MEDS: BALSAM PERU/CASTOR OIL 60 GM OINT...G. TP SCH (11:10)
[2020-06-30] MEDS: PRAVASTATIN 20 MG TAB PO SCH (11:10)
[2020-06-30] MEDS: FAMOTIDINE 20 MG/2 ML VIAL IV SCH ×2 (11:18→16:51)
[2020-06-30] MEDS: ACETAMINOPHEN/CODEINE 300MG - 30MG TAB PO PRN (16:52)
[2020-06-30] MEDS: DIVALPROEX SODIUM 250 MG TAB...DR PO SCH (20:05)
[2020-07-01] VITALS (9 sets, daily range): BP systolic 132–175; BP diastolic 74–97
[2020-07-01 05:18] LABS: BASOPHILS % 0.4 % (0.0-1.0); EOSINOPHILS # (AUTO) 0.2 (0.0-0.4); EOSINOPHILS % 2.4 % (0.0-6.0); HEMATOCRIT 31.9 % (34.2-44.1); HEMOGLOBIN 10.1 g/dL (12.0-16.0); LYMPHOCYTES # (AUTO) 1.9 (1.0-3.2); MEAN CORPUSCULAR HEMOGLOBIN 27.4 pg (28-32); MEAN CORPUSCULAR HGB CONC 31.7 g/dL (31-35); MEAN CORPUSCULAR VOLUME 86.4 fL (81-99); MONOCYTES # (AUTO) 0.6 (0.2-0.8); MONOCYTES % 8.1 % (4.4-11.3); NEUTROPHILS # (AUTO) 4.7 (2.1-6.9); NEUTROPHILS % 62.4 % (38.7-80.0); PLATELET COUNT 366 x10e3/uL (140-360); RED BLOOD COUNT 3.69 x10e6/uL (3.6-5.1); RED CELL DISTRIBUTION WIDTH 14.6 % (11.7-14.4)
[2020-07-01 05:48] LABS: ANION GAP 12.8 mmol/L (8-16); BLOOD UREA NITROGEN < 5 mg/dL (7-26); CALCIUM 8.4 mg/dL (8.4-10.2); CARBON DIOXIDE 30 mmol/L (22-29); CHLORIDE 101 mmol/L (98-107); CREATININE, SERUM 0.47 mg/dL (0.57-1.11); EST GLOMERULAR FILTRATION RATE > 60 ML/MIN (60-); GLUCOSE 171 mg/dL (74-118); POTASSIUM 3.8 mmol/L (3.5-5.1); SODIUM 140 mmol/L (136-145)
[2020-07-01 05:49] LABS: BUN/CREATININE RATIO 11 (6-25)
[2020-07-01] MEDS: ALBUTEROL/IPRATROPIUM 3 ML NEB NEB SCH ×3 (07:00→19:10)
[2020-07-01] MEDS: INSULIN LISPRO 100 UNIT/1 ML 3ML VIAL SQ SCH ×4 (07:30→20:21)
[2020-07-01] MEDS: BUSPIRONE HCL 5 MG TAB PO SCH ×2 (09:01→16:56)
[2020-07-01] MEDS: PRAVASTATIN 20 MG TAB PO SCH (09:01)
[2020-07-01] MEDS: DOCUSATE SODIUM 100 MG CAP PO SCH ×2 (09:01→16:56)
[2020-07-01] MEDS: BALSAM PERU/CASTOR OIL 60 GM OINT...G. TP SCH (09:01)
[2020-07-01] MEDS: GLIPIZIDE 5 MG TAB PO SCH (09:01)
[2020-07-01] MEDS: METFORMIN HCL 500 MG TAB PO SCH ×2 (09:01→16:56)
[2020-07-01] MEDS: GABAPENTIN 300 MG CAP PO SCH ×3 (09:01→20:21)
[2020-07-01] MEDS: VALSARTAN 160 MG TAB PO SCH (09:01)
[2020-07-01] MEDS: ASPIRIN 81 MG CHEW TAB PO SCH (09:01)
[2020-07-01] MEDS: METOPROLOL SUCCINATE 25 MG TAB XL PO SCH ×2 (09:01→16:57)
[2020-07-01] MEDS: ISOSORBIDE MONONITRATE 20 MG TAB PO SCH (09:01)
[2020-07-01] MEDS: FAMOTIDINE 20 MG/2 ML VIAL IV SCH ×2 (09:01→16:56)
[2020-07-01] MEDS: ACETAMINOPHEN 325 MG TAB PO PRN (14:24)
[2020-07-01] MEDS: DIVALPROEX SODIUM 250 MG TAB...DR PO SCH (20:21)
[2020-07-01] MEDS: SENNA-S TABLET PO PRN (21:32)
[2020-07-01] MEDS: ACETAMINOPHEN/CODEINE 300MG - 30MG TAB PO PRN (21:32)
[2020-07-02] VITALS (8 sets, daily range): BP systolic 127–162; BP diastolic 67–93
[2020-07-02 06:35] LABS: ANION GAP 17.5 mmol/L (8-16); BLOOD UREA NITROGEN 6 mg/dL (7-26); BUN/CREATININE RATIO 12 (6-25); CALCIUM 8.8 mg/dL (8.4-10.2); CARBON DIOXIDE 26 mmol/L (22-29); CHLORIDE 99 mmol/L (98-107); CREATININE, SERUM 0.49 mg/dL (0.57-1.11); EST GLOMERULAR FILTRATION RATE > 60 ML/MIN (60-); GLUCOSE 184 mg/dL (74-118); MAGNESIUM 1.4 MG/DL (1.3-2.1); POTASSIUM 3.5 mmol/L (3.5-5.1); SODIUM 139 mmol/L (136-145)
[2020-07-02] MEDS: INSULIN LISPRO 100 UNIT/1 ML 3ML VIAL SQ SCH ×4 (07:30→20:48)
[2020-07-02] MEDS: ALBUTEROL/IPRATROPIUM 3 ML NEB NEB SCH ×3 (08:04→19:00)
[2020-07-02] MEDS ORDERED: MAGNESIUM SULFATE 2GM/50ML 50 ML IV ONE ×2 (08:15→10:30)
[2020-07-02] MEDS: GLIPIZIDE 5 MG TAB PO SCH (08:52)
[2020-07-02] MEDS: DOCUSATE SODIUM 100 MG CAP PO SCH ×2 (08:52→16:46)
[2020-07-02] MEDS: PRAVASTATIN 20 MG TAB PO SCH (08:52)
[2020-07-02] MEDS: METOPROLOL SUCCINATE 25 MG TAB XL PO SCH ×2 (08:52→16:46)
[2020-07-02] MEDS: ISOSORBIDE MONONITRATE 20 MG TAB PO SCH (08:52)
[2020-07-02] MEDS: ASPIRIN 81 MG CHEW TAB PO SCH (08:52)
[2020-07-02] MEDS: VALSARTAN 160 MG TAB PO SCH (08:52)
[2020-07-02] MEDS: METFORMIN HCL 500 MG TAB PO SCH ×2 (08:52→16:46)
[2020-07-02] MEDS: FAMOTIDINE 20 MG/2 ML VIAL IV SCH ×2 (08:52→16:46)
[2020-07-02] MEDS: GABAPENTIN 300 MG CAP PO SCH ×3 (08:52→20:13)
[2020-07-02] MEDS: BUSPIRONE HCL 5 MG TAB PO SCH ×2 (08:52→16:46)
[2020-07-02] MEDS: BALSAM PERU/CASTOR OIL 60 GM OINT...G. TP SCH (08:56)
[2020-07-02] MEDS: BUDESONIDE/FORMOTEROL 160/4.5MCG INHALER INH SCH (08:56)
[2020-07-02] MEDS ORDERED: SODIUM CHLORIDE 0.9% 250ML 250 ML ONE (09:32)
[2020-07-02] MEDS: ACETAMINOPHEN 325 MG TAB PO PRN (14:19)
[2020-07-02] MEDS: DIVALPROEX SODIUM 250 MG TAB...DR PO SCH (20:13)
[2020-07-03] VITALS (8 sets, daily range): BP systolic 131–167; BP diastolic 74–91
[2020-07-03] MEDS: ALBUTEROL/IPRATROPIUM 3 ML NEB NEB SCH ×4 (01:00→19:00)
[2020-07-03] MEDS: ACETAMINOPHEN/CODEINE 300MG - 30MG TAB PO PRN (04:22)
[2020-07-03 06:45] LABS: BASOPHILS % 0.2 % (0.0-1.0); EOSINOPHILS # (AUTO) 0.2 (0.0-0.4); EOSINOPHILS % 1.9 % (0.0-6.0); HEMATOCRIT 31.6 % (34.2-44.1); LYMPHOCYTES # (AUTO) 1.7 (1.0-3.2); LYMPHOCYTES % 17.8 % (18.0-39.1); MEAN CORPUSCULAR HEMOGLOBIN 27.2 pg (28-32); MEAN CORPUSCULAR HGB CONC 31.6 g/dL (31-35); MEAN CORPUSCULAR VOLUME 86.1 fL (81-99); MONOCYTES # (AUTO) 0.5 (0.2-0.8); MONOCYTES % 5.8 % (4.4-11.3); NEUTROPHILS # (AUTO) 6.9 (2.1-6.9); NEUTROPHILS % 73.6 % (38.7-80.0); PLATELET COUNT 296 x10e3/uL (140-360); RED BLOOD COUNT 3.67 x10e6/uL (3.6-5.1); RED CELL DISTRIBUTION WIDTH 14.7 % (11.7-14.4)
[2020-07-03] MEDS: INSULIN LISPRO 100 UNIT/1 ML 3ML VIAL SQ SCH ×4 (07:30→21:00)
[2020-07-03 07:33] LABS: ANION GAP 16.8 mmol/L (8-16); BLOOD UREA NITROGEN 5 mg/dL (7-26); BUN/CREATININE RATIO 10 (6-25); CALCIUM 8.6 mg/dL (8.4-10.2); CARBON DIOXIDE 25 mmol/L (22-29); CHLORIDE 100 mmol/L (98-107); CREATININE, SERUM 0.51 mg/dL (0.57-1.11); EST GLOMERULAR FILTRATION RATE > 60 ML/MIN (60-); GLUCOSE 166 mg/dL (74-118); MAGNESIUM 1.7 MG/DL (1.3-2.1); POTASSIUM 3.8 mmol/L (3.5-5.1); SODIUM 138 mmol/L (136-145)
[2020-07-03] MEDS: BUDESONIDE/FORMOTEROL 160/4.5MCG INHALER INH SCH (08:10)
[2020-07-03] MEDS ORDERED: MAGNESIUM OXIDE 400 MG TAB PO ONE (08:45)
[2020-07-03] MEDS: DOCUSATE SODIUM 100 MG CAP PO SCH ×2 (08:46→16:47)
[2020-07-03] MEDS: ASPIRIN 81 MG CHEW TAB PO SCH (08:46)
[2020-07-03] MEDS: METFORMIN HCL 500 MG TAB PO SCH ×2 (08:46→16:48)
[2020-07-03] MEDS: BUSPIRONE HCL 5 MG TAB PO SCH ×2 (08:46→16:48)
[2020-07-03] MEDS: FAMOTIDINE 20 MG/2 ML VIAL IV SCH ×2 (08:46→16:48)
[2020-07-03] MEDS: VALSARTAN 160 MG TAB PO SCH (08:46)
[2020-07-03] MEDS: GLIPIZIDE 5 MG TAB PO SCH (08:46)
[2020-07-03] MEDS: BALSAM PERU/CASTOR OIL 60 GM OINT...G. TP SCH (08:47)
[2020-07-03] MEDS: METOPROLOL SUCCINATE 25 MG TAB XL PO SCH ×2 (08:47→16:48)
[2020-07-03] MEDS: PRAVASTATIN 20 MG TAB PO SCH (08:47)
[2020-07-03] MEDS: ISOSORBIDE MONONITRATE 20 MG TAB PO SCH (08:47)
[2020-07-03] MEDS: AMLODIPINE BESYLATE 5 MG TAB PO SCH (09:06)
[2020-07-03] MEDS ORDERED: COLACE100 MG PO (14:14)
[2020-07-03] MEDS ORDERED: MAG-OXIDE400 MG PO (14:14)
[2020-07-03] MEDS ORDERED: MUCINEX DM ER1 EACH PO (14:14)
[2020-07-03] MEDS ORDERED: VENELEX OINTMEN60 GM TP (14:14)
[2020-07-03] MEDS ORDERED: Insulin Lispro SQ (14:14)
[2020-07-03] MEDS ORDERED: HYDROCODON-ACE1 EA11 PO (14:14)
[2020-07-03] MEDS ORDERED: MIRALAX17 GM PO (14:14)
[2020-07-03] MEDS ORDERED: NORVASC5 MG PO (14:14)
[2020-07-03] MEDS ORDERED: TYLENOL # 31 EA PO (14:14)
[2020-07-03] MEDS ORDERED: Albuterol/Ipratropium Nebulize NEB (14:14)
[2020-07-03] MEDS ORDERED: ACETAMINOPHEN325 M1 PO (14:14)
[2020-07-03] MEDS: DIVALPROEX SODIUM 250 MG TAB...DR PO SCH (21:50)
[2020-07-04] VITALS: BP 153/97
[2020-07-04] MEDS: ALBUTEROL/IPRATROPIUM 3 ML NEB NEB SCH ×2 (01:00→07:00)
[2020-07-04] MEDS: ACETAMINOPHEN/CODEINE 300MG - 30MG TAB PO PRN (03:57)
[2020-07-04 04:00] VITALS: BP 157/94
[2020-07-04 08:06] VITALS: BP 161/85
[2020-07-04 08:15] VITALS: BP 161/85
[2020-07-04] MEDS: ASPIRIN 81 MG CHEW TAB PO SCH (08:54)
[2020-07-04] MEDS: BUSPIRONE HCL 5 MG TAB PO SCH (08:54)
[2020-07-04] MEDS: FAMOTIDINE 20 MG/2 ML VIAL IV SCH (08:54)
[2020-07-04] MEDS: VALSARTAN 160 MG TAB PO SCH (08:55)
[2020-07-04] MEDS: DOCUSATE SODIUM 100 MG CAP PO SCH (08:55)
[2020-07-04] MEDS: METFORMIN HCL 500 MG TAB PO SCH (08:55)
[2020-07-04] MEDS: GLIPIZIDE 5 MG TAB PO SCH (08:56)
[2020-07-04] MEDS: ISOSORBIDE MONONITRATE 20 MG TAB PO SCH (08:56)
[2020-07-04] MEDS: PRAVASTATIN 20 MG TAB PO SCH (08:58)
[2020-07-04] MEDS: AMLODIPINE BESYLATE 5 MG TAB PO SCH (08:58)
[2020-07-04] MEDS: METOPROLOL SUCCINATE 25 MG TAB XL PO SCH (08:59)
[2020-07-04] MEDS: BUDESONIDE/FORMOTEROL 160/4.5MCG INHALER INH SCH (09:00)
[2020-07-04] MEDS ORDERED: MAGNESIUM OXIDE 400 MG TAB PO SCH (09:00)
[2020-07-04] MEDS: INSULIN LISPRO 100 UNIT/1 ML 3ML VIAL SQ SCH (09:06)
[2020-07-04] MEDS: BALSAM PERU/CASTOR OIL 60 GM OINT...G. TP SCH (09:06)
== END 2020-07-04 10:46 | DRG 871 ==
LOC: ER 14:40 → ERHOLD 20:43 → MED/SURG3 21:19
PROVIDERS: ADMIT Internal Medicine; ATTEND Internal Medicine
PROC: 05HY33Z Insertion of Infusion Device into Upper Vein, Percutaneous Approach (ICD-10-PCS; principal; 2020-06-25)
DX: A41.9 Sepsis, unspecified organism (principal); J69.0 Pneumonitis due to inhalation of food and vomit; I50.32 Chronic diastolic (congestive) heart failure; J44.0 Chronic obstructive pulmonary disease with (acute) lower respiratory infection; N10 Acute pyelonephritis; I69.354 Hemiplegia and hemiparesis following cerebral infarction affecting left non-dominant side; J44.1 Chronic obstructive pulmonary disease with (acute) exacerbation; R65.20 Severe sepsis without septic shock; I11.0 Hypertensive heart disease with heart failure; E86.0 Dehydration; E11.65 Type 2 diabetes mellitus with hyperglycemia; R11.10 Vomiting, unspecified; E83.42 Hypomagnesemia; Z20.822 Contact with and (suspected) exposure to COVID-19; I69.322 Dysarthria following cerebral infarction; F03.90 Unspecified dementia, unspecified severity, without behavioral disturbance, psychotic disturbance, mood disturbance, and anxiety; Y95 Nosocomial condition; Z74.09 Other reduced mobility; Z87.891 Personal history of nicotine dependence; E87.6 Hypokalemia; K59.00 Constipation, unspecified
CPT/HCPCS: 36415; 51700; 71045; 71250; 74177; 74230; 80048; 80053; 80202; 81001; 82550; 82553; 82948; 83690; 83735; 83880; 84100; 84484; 85025; 85610; 85730; 87040; 87071; 87086; 87205; 93005; 94640; 97139; 99251; 99284; J0456; J0696; J1650; J2405; J2930; J3370; J3475; J7030; J7040; J7050; Q9967; U0002

== ENCOUNTER 2020-10-30 17:00 | Inpatient (IN) | payer MEDICARE ==
[~2020-10-30] VITALS: Ht 162.6 cm; Wt 81.6 kg
[~2020-10-30 17:00] MED LIST changes: +ACETAMINOPHEN325 M1 PO; +Albuterol/Ipratropium Nebulize NEB; +COLACE100 MG PO; +HYDROCODON-ACE1 EA11 PO; +Insulin Lispro SQ; +MAG-OXIDE400 MG PO; +MIRALAX17 GM PO; +MUCINEX DM ER1 EACH PO; +NORVASC5 MG PO; +TYLENOL # 31 EA PO; +VENELEX OINTMEN60 GM TP
[2020-10-30] MEDS ORDERED: DIPHENHYDRAMINE HCL INJ 50 MG/ML VIAL ONE (17:14)
[2020-10-30] MEDS ORDERED: METOCLOPRAMIDE HCL 10 MG/2ML VIAL ONE (17:14)
[2020-10-30] MEDS ORDERED: ACETAMINOPHEN 650 MG SUPP PR ONE ×2 (17:15→17:17)
[2020-10-30] MEDS ORDERED: CEFEPIME HCL 1 GM VIAL IV SCH (17:15)
[2020-10-30] MEDS ORDERED: METOCLOPRAMIDE HCL 10 MG/2ML VIAL IV ONE (17:15)
[2020-10-30] MEDS ORDERED: DIPHENHYDRAMINE HCL INJ 50 MG/ML VIAL IV ONE (17:15)
[2020-10-30] MEDS: CEFEPIME 1 GM in SODIUM CHLORIDE 0.9% 50ML 50 ML IV SCH (17:30)
[2020-10-30] MEDS ORDERED: SODIUM CHLORIDE 0.9% 1000ML 2,000 ML ONE (17:31)
[2020-10-30 17:42] LABS: BASOPHILS % 0.1 % (0.0-1.0); EOSINOPHILS % 0.1 % (0.0-6.0); HEMOGLOBIN 12.4 g/dL (12.0-16.0); LYMPHOCYTES # (AUTO) 1.5 (1.0-3.2); LYMPHOCYTES % 10.9 % (18.0-39.1); MEAN CORPUSCULAR HEMOGLOBIN 28.1 pg (28-32); MEAN CORPUSCULAR HGB CONC 32.6 g/dL (31-35); MEAN CORPUSCULAR VOLUME 86.2 fL (81-99); MONOCYTES # (AUTO) 1.3 (0.2-0.8); MONOCYTES % 9.2 % (4.4-11.3); NEUTROPHILS # (AUTO) 10.8 (2.1-6.9); PLATELET COUNT 254 x10e3/uL (140-360); RED BLOOD COUNT 4.41 x10e6/uL (3.6-5.1); RED CELL DISTRIBUTION WIDTH 14.6 % (11.7-14.4)
[2020-10-30] MEDS ORDERED: SODIUM CHLORIDE 0.9% 1000ML 1,000 ML IV ONE ×2 (17:45)
[2020-10-30 17:51] LABS: CLARITY,URINE CLOUDY (CLEAR); COLOR,URINE YELLOW (YELLOW); KETONES,URINE 1+ (NEGATIVE); LEUKOCYTE ESTERASE ,URINE LARGE (NEGATIVE); NITRITE,URINE POSITIVE (NEGATIVE); PROTEIN,URINE DIPSTICK 2+ (NEGATIVE); URINE UROBILINOGEN 0.2 mg/dL (0.2 - 1)
[2020-10-30 17:52] LABS: AMORPHOUS SEDIMENT,URINE FEW (FEW); BACTERIA,URINE MANY /HPF; EPITHELIAL CELLS,URINE FEW /LPF; MUCUS,URINE MANY (RARE); RBC,URINE >50 /HPF (0-5); WBC,URINE (MAN) >50 /HPF (0-5)
[2020-10-30 17:56] LABS: ALANINE AMINOTRANSFERASE 12 IU/L (0-55); ALBUMIN 3.7 g/dL (3.5-5.0); ALKALINE PHOSPHATASE 66 IU/L (40-150); ANION GAP 21.5 mmol/L (8-16); BLOOD UREA NITROGEN 9 mg/dL (7-26); BUN/CREATININE RATIO 15 (6-25); CALCIUM 10.1 mg/dL (8.4-10.2); CARBON DIOXIDE 22 mmol/L (22-29); CHLORIDE 98 mmol/L (98-107); CREATININE, SERUM 0.61 mg/dL (0.57-1.11); EST GLOMERULAR FILTRATION RATE > 60 ML/MIN (60-); GLUCOSE 156 mg/dL (74-118); POTASSIUM 4.5 mmol/L (3.5-5.1); SODIUM 137 mmol/L (136-145)
[2020-10-30 17:57] LABS: CREATINE KINASE 12 IU/L (29-168)
[2020-10-30] MEDS ORDERED: SODIUM CHLORIDE 0.9% 50ML 50 ML ONE (18:12)
[2020-10-30] MEDS ORDERED: IOPAMIDOL 370 MG/ML 200 ML INFUS..BTL INJ ONE (18:13)
[2020-10-30] MEDS ORDERED: SODIUM CHLORIDE 0.9% 1000ML 1,000 ML IV STA (20:04)
[2020-10-31] MEDS ORDERED: PIPERACILLIN/TAZOBACTAM 3.375 GM VIAL ONE (00:44)
[2020-10-31] MEDS ORDERED: SODIUM CHLORIDE 0.9% 50ML 50 ML ONE (00:44)
[2020-10-31] MEDS: SODIUM CHLORIDE 0.9% 1000ML 1,000 ML IV SCH ×4 (00:57→20:15)
[2020-10-31] MEDS: ACETAMINOPHEN 650 MG SUPP PR PRN (01:19)
[2020-10-31] MEDS ORDERED: IBUPROFEN 600 MG TAB PO PRN (02:30)
[2020-10-31] MEDS ORDERED: IBUPROFEN 600 MG TAB ONE (02:33)
[2020-10-31 05:51] LABS: BASOPHILS % 0.2 % (0.0-1.0); EOSINOPHILS % 0.2 % (0.0-6.0); HEMATOCRIT 30.4 % (34.2-44.1); LYMPHOCYTES # (AUTO) 1.4 (1.0-3.2); LYMPHOCYTES % 16.9 % (18.0-39.1); MEAN CORPUSCULAR HEMOGLOBIN 28.4 pg (28-32); MEAN CORPUSCULAR HGB CONC 32.9 g/dL (31-35); MEAN CORPUSCULAR VOLUME 86.4 fL (81-99); MONOCYTES % 11.3 % (4.4-11.3); NEUTROPHILS % 70.7 % (38.7-80.0); PLATELET COUNT 197 x10e3/uL (140-360); RED BLOOD COUNT 3.52 x10e6/uL (3.6-5.1); RED CELL DISTRIBUTION WIDTH 14.8 % (11.7-14.4)
[2020-10-31 06:08] LABS: ALANINE AMINOTRANSFERASE 9 IU/L (0-55); ALBUMIN 2.9 g/dL (3.5-5.0); ALKALINE PHOSPHATASE 50 IU/L (40-150); ANION GAP 13.6 mmol/L (8-16); BLOOD UREA NITROGEN 6 mg/dL (7-26); BUN/CREATININE RATIO 12 (6-25); CALCIUM 8.5 mg/dL (8.4-10.2); CARBON DIOXIDE 25 mmol/L (22-29); CHLORIDE 105 mmol/L (98-107); EST GLOMERULAR FILTRATION RATE > 60 ML/MIN (60-); GLUCOSE 140 mg/dL (74-118); POTASSIUM 3.6 mmol/L (3.5-5.1); SODIUM 140 mmol/L (136-145)
[2020-10-31] MEDS: CEFEPIME 1 GM in SODIUM CHLORIDE 0.9% 50ML 50 ML IV SCH ×2 (06:29→18:00)
[2020-10-31] MEDS ORDERED: PIPER-TAZ 3.375 GM 50 ML IV SCH (07:00)
[2020-10-31] MEDS ORDERED: DEXTROSE 50% SYRINGE 50 ML IV PRN (09:45)
[2020-10-31 10:20] VITALS: BP 109/69
[2020-10-31] MEDS: INSULIN LISPRO 100 UNIT/1 ML 3ML VIAL SQ SCH ×3 (11:11→22:18)
[2020-10-31] MEDS: ASPIRIN 81 MG CHEW TAB PO SCH (11:41)
[2020-10-31] MEDS: AMLODIPINE BESYLATE 5 MG TAB PO SCH (12:10)
[2020-10-31] MEDS: BUDESONIDE/FORMOTEROL 160/4.5MCG INHALER INH SCH (13:00)
[2020-10-31] MEDS: GABAPENTIN 300 MG CAP PO SCH ×2 (15:50→22:18)
[2020-10-31 16:50] VITALS: BP 120/68
[2020-10-31] MEDS: BUSPIRONE HCL 5 MG TAB PO SCH (18:00)
[2020-10-31] MEDS: METOPROLOL SUCCINATE 25 MG TAB XL PO SCH (18:00)
[2020-10-31 20:00] VITALS: BP 120/68
[2020-10-31 20:40] VITALS: BP 142/74
[2020-10-31] MEDS: DIVALPROEX SODIUM 250 MG TAB...DR PO SCH (21:10)
[2020-10-31] MEDS: HEPARIN SOD (PORCINE) 5,000 UNIT/ML VIAL SC SCH (21:17)
[2020-11-01] VITALS (7 sets, daily range): BP systolic 109–142; BP diastolic 53–94
[2020-11-01] MEDS: SODIUM CHLORIDE 0.9% 1000ML 1,000 ML IV SCH ×3 (04:15→20:15)
[2020-11-01] MEDS: CEFEPIME 1 GM in SODIUM CHLORIDE 0.9% 50ML 50 ML IV SCH (05:03)
[2020-11-01 05:27] LABS: BASOPHILS % 0.2 % (0.0-1.0); EOSINOPHILS % 0.3 % (0.0-6.0); HEMATOCRIT 29.8 % (34.2-44.1); LYMPHOCYTES # (AUTO) 2.1 (1.0-3.2); LYMPHOCYTES % 23.5 % (18.0-39.1); MEAN CORPUSCULAR HEMOGLOBIN 29.5 pg (28-32); MEAN CORPUSCULAR HGB CONC 33.6 g/dL (31-35); MEAN CORPUSCULAR VOLUME 87.9 fL (81-99); MONOCYTES # (AUTO) 1.2 (0.2-0.8); MONOCYTES % 13.8 % (4.4-11.3); NEUTROPHILS # (AUTO) 5.4 (2.1-6.9); NEUTROPHILS % 61.9 % (38.7-80.0); PLATELET COUNT 173 x10e3/uL (140-360); RED BLOOD COUNT 3.39 x10e6/uL (3.6-5.1)
[2020-11-01 06:02] LABS: ANION GAP 10.4 mmol/L (8-16); BLOOD UREA NITROGEN 8 mg/dL (7-26); BUN/CREATININE RATIO 16 (6-25); CALCIUM 8.4 mg/dL (8.4-10.2); CARBON DIOXIDE 23 mmol/L (22-29); CHLORIDE 107 mmol/L (98-107); CREATININE, SERUM 0.51 mg/dL (0.57-1.11); EST GLOMERULAR FILTRATION RATE > 60 ML/MIN (60-); GLUCOSE 189 mg/dL (74-118); POTASSIUM 3.4 mmol/L (3.5-5.1); SODIUM 137 mmol/L (136-145)
[2020-11-01] MEDS: BUDESONIDE/FORMOTEROL 160/4.5MCG INHALER INH SCH (07:58)
[2020-11-01] MEDS: ASPIRIN 81 MG CHEW TAB PO SCH (08:44)
[2020-11-01] MEDS: BUSPIRONE HCL 5 MG TAB PO SCH ×2 (08:44→16:13)
[2020-11-01] MEDS: GLIPIZIDE 5 MG TAB PO SCH (08:44)
[2020-11-01] MEDS: VALSARTAN 160 MG TAB PO SCH (08:45)
[2020-11-01] MEDS: GABAPENTIN 300 MG CAP PO SCH ×3 (08:45→21:00)
[2020-11-01] MEDS: AMLODIPINE BESYLATE 5 MG TAB PO SCH (08:46)
[2020-11-01] MEDS: METOPROLOL SUCCINATE 25 MG TAB XL PO SCH ×2 (08:46→16:13)
[2020-11-01] MEDS: PRAVASTATIN 20 MG TAB PO SCH (08:46)
[2020-11-01] MEDS: ISOSORBIDE MONONITRATE 20 MG TAB PO SCH (09:00)
[2020-11-01] MEDS: INSULIN LISPRO 100 UNIT/1 ML 3ML VIAL SQ SCH ×4 (09:01→21:49)
[2020-11-01] MEDS: HEPARIN SOD (PORCINE) 5,000 UNIT/ML VIAL SC SCH ×2 (09:02→21:54)
[2020-11-01] MEDS ORDERED: POTASSIUM CHLORIDE 20 MEQ TAB CR PO PRN (11:00)
[2020-11-01] MEDS ORDERED: CEFTRIAXONE 2 GM/DEXT 100 ML 2 GM/100 ML ML IV SCH (13:15)
[2020-11-01] MEDS ORDERED: SODIUM CHLORIDE 0.9% IV SCH (13:30)
[2020-11-01] MEDS ORDERED: CEFTRIAXONE IV SCH (13:30)
[2020-11-01] MEDS: ACETAMINOPHEN 650 MG SUPP PR PRN (14:48)
[2020-11-01] MEDS: SODIUM CHLORIDE 0.9% IV SCH (14:48)
[2020-11-01] MEDS: CEFTRIAXONE IV SCH (14:48)
[2020-11-01] MEDS: TRAMADOL HCL 50 MG TAB PO PRN ×2 (16:19→23:46)
[2020-11-01] MEDS: DIVALPROEX SODIUM 250 MG TAB...DR PO SCH (21:00)
[2020-11-01] MEDS ORDERED: INSULIN GLARGINE 100 UNITS/ML VIAL SQ SCH ×2 (21:00)
[2020-11-02 00:32] VITALS: BP 152/77
[2020-11-02] MEDS: SODIUM CHLORIDE 0.9% 1000ML 1,000 ML IV SCH ×2 (04:15→16:40)
[2020-11-02 04:50] VITALS: BP 157/89
[2020-11-02 05:40] LABS: ANION GAP 12.6 mmol/L (8-16); BLOOD UREA NITROGEN 6 mg/dL (7-26); BUN/CREATININE RATIO 12 (6-25); CALCIUM 8.5 mg/dL (8.4-10.2); CARBON DIOXIDE 24 mmol/L (22-29); CHLORIDE 104 mmol/L (98-107); CREATININE, SERUM 0.49 mg/dL (0.57-1.11); EST GLOMERULAR FILTRATION RATE > 60 ML/MIN (60-); GLUCOSE 202 mg/dL (74-118); POTASSIUM 3.6 mmol/L (3.5-5.1); SODIUM 137 mmol/L (136-145)
[2020-11-02] MEDS: BUDESONIDE/FORMOTEROL 160/4.5MCG INHALER INH SCH (07:41)
[2020-11-02 07:54] VITALS: BP 143/76
[2020-11-02] MEDS: GLIPIZIDE 5 MG TAB PO SCH (08:24)
[2020-11-02] MEDS: BUSPIRONE HCL 5 MG TAB PO SCH ×2 (08:25→16:37)
[2020-11-02] MEDS: ASPIRIN 81 MG CHEW TAB PO SCH (08:25)
[2020-11-02] MEDS: VALSARTAN 160 MG TAB PO SCH (08:25)
[2020-11-02] MEDS: ISOSORBIDE MONONITRATE 20 MG TAB PO SCH (08:26)
[2020-11-02] MEDS: METOPROLOL SUCCINATE 25 MG TAB XL PO SCH ×2 (08:26→16:37)
[2020-11-02] MEDS: AMLODIPINE BESYLATE 5 MG TAB PO SCH (08:26)
[2020-11-02] MEDS: PRAVASTATIN 20 MG TAB PO SCH (08:26)
[2020-11-02] MEDS: GABAPENTIN 300 MG CAP PO SCH ×3 (08:26→20:58)
[2020-11-02] MEDS: INSULIN LISPRO 100 UNIT/1 ML 3ML VIAL SQ SCH ×4 (09:14→21:45)
[2020-11-02] MEDS: HEPARIN SOD (PORCINE) 5,000 UNIT/ML VIAL SC SCH ×2 (09:14→21:45)
[2020-11-02] MEDS: TRAMADOL HCL 50 MG TAB PO PRN ×3 (10:30→22:44)
[2020-11-02 12:44] VITALS: BP 138/78
[2020-11-02] MEDS: SODIUM CHLORIDE 0.9% IV SCH (13:12)
[2020-11-02] MEDS: CEFTRIAXONE IV SCH (13:12)
[2020-11-02] MEDS: TETRAHYDROZOLINE HCL(OPTH) 30 ML BOTTLE OP PRN (15:03)
[2020-11-02] MEDS: DOCUSATE SODIUM 100 MG CAP PO SCH (16:37)
[2020-11-02 20:30] VITALS: BP 147/80
[2020-11-02] MEDS: DIVALPROEX SODIUM 250 MG TAB...DR PO SCH (20:58)
[2020-11-02 21:00] VITALS: BP 147/80
[2020-11-02] MEDS ORDERED: INSULIN GLARGINE 100 UNITS/ML VIAL SQ SCH (21:00)
[2020-11-03] VITALS (8 sets, daily range): BP systolic 122–162; BP diastolic 76–89
[2020-11-03] MEDS: TRAMADOL HCL 50 MG TAB PO PRN ×2 (04:19→13:30)
[2020-11-03] MEDS: TETRAHYDROZOLINE HCL(OPTH) 30 ML BOTTLE OP PRN (04:19)
[2020-11-03] MEDS: BUDESONIDE/FORMOTEROL 160/4.5MCG INHALER INH SCH (06:00)
[2020-11-03] MEDS: GLIPIZIDE 5 MG TAB PO SCH (08:34)
[2020-11-03] MEDS: ISOSORBIDE MONONITRATE 20 MG TAB PO SCH (08:35)
[2020-11-03] MEDS: BUSPIRONE HCL 5 MG TAB PO SCH ×2 (08:35→16:52)
[2020-11-03] MEDS: ASPIRIN 81 MG CHEW TAB PO SCH (08:35)
[2020-11-03] MEDS: VALSARTAN 160 MG TAB PO SCH (08:35)
[2020-11-03] MEDS: DOCUSATE SODIUM 100 MG CAP PO SCH ×2 (08:35→16:52)
[2020-11-03] MEDS: PRAVASTATIN 20 MG TAB PO SCH (08:36)
[2020-11-03] MEDS: GABAPENTIN 300 MG CAP PO SCH ×3 (08:36→20:43)
[2020-11-03] MEDS: METOPROLOL SUCCINATE 25 MG TAB XL PO SCH ×2 (08:36→16:52)
[2020-11-03] MEDS: AMLODIPINE BESYLATE 5 MG TAB PO SCH (08:36)
[2020-11-03] MEDS: INSULIN LISPRO 100 UNIT/1 ML 3ML VIAL SQ SCH ×4 (08:43→20:37)
[2020-11-03] MEDS: HEPARIN SOD (PORCINE) 5,000 UNIT/ML VIAL SC SCH ×2 (08:43→20:36)
[2020-11-03] MEDS ORDERED: KEFLEX125 MG/5 M PO (09:42)
[2020-11-03] MEDS: SODIUM CHLORIDE 0.9% 1000ML 1,000 ML IV SCH (12:09)
[2020-11-03] MEDS: CEFTRIAXONE IV SCH (13:12)
[2020-11-03] MEDS: SODIUM CHLORIDE 0.9% IV SCH (13:12)
[2020-11-03] MEDS: PANTOPRAZOLE SOD 40 MG TABEC PO SCH (16:52)
[2020-11-03] MEDS: DIVALPROEX SODIUM 250 MG TAB...DR PO SCH (20:43)
[2020-11-03] MEDS ORDERED: INSULIN GLARGINE 100 UNITS/ML VIAL SQ SCH (21:00)
[2020-11-04] VITALS: BP 129/66
[2020-11-04 04:00] VITALS: BP 146/84
[2020-11-04] MEDS: BUDESONIDE/FORMOTEROL 160/4.5MCG INHALER INH SCH (07:47)
[2020-11-04 08:55] VITALS: BP 144/80
[2020-11-04 09:00] VITALS: BP 144/80
[2020-11-04] MEDS: GLIPIZIDE 5 MG TAB PO SCH (09:50)
[2020-11-04] MEDS: PANTOPRAZOLE SOD 40 MG TABEC PO SCH ×2 (09:51→18:06)
[2020-11-04] MEDS: SODIUM CHLORIDE 0.9% 1000ML 1,000 ML IV SCH (09:56)
[2020-11-04] MEDS: BUSPIRONE HCL 5 MG TAB PO SCH ×2 (09:59→18:06)
[2020-11-04] MEDS: VALSARTAN 160 MG TAB PO SCH (09:59)
[2020-11-04] MEDS: DOCUSATE SODIUM 100 MG CAP PO SCH ×2 (09:59→18:06)
[2020-11-04] MEDS: ISOSORBIDE MONONITRATE 20 MG TAB PO SCH (09:59)
[2020-11-04] MEDS: ASPIRIN 81 MG CHEW TAB PO SCH (09:59)
[2020-11-04] MEDS: PRAVASTATIN 20 MG TAB PO SCH (10:00)
[2020-11-04] MEDS: METOPROLOL SUCCINATE 25 MG TAB XL PO SCH ×2 (10:00→18:06)
[2020-11-04] MEDS: AMLODIPINE BESYLATE 5 MG TAB PO SCH (10:00)
[2020-11-04] MEDS: GABAPENTIN 300 MG CAP PO SCH ×2 (10:00→15:00)
[2020-11-04] MEDS: HEPARIN SOD (PORCINE) 5,000 UNIT/ML VIAL SC SCH (10:06)
[2020-11-04] MEDS: INSULIN LISPRO 100 UNIT/1 ML 3ML VIAL SQ SCH ×3 (10:07→18:07)
[2020-11-04 11:46] VITALS: BP 140/77
[2020-11-04] MEDS: SODIUM CHLORIDE 0.9% IV SCH (13:59)
[2020-11-04] MEDS: CEFTRIAXONE IV SCH (13:59)
[2020-11-04] MEDS: TRAMADOL HCL 50 MG TAB PO PRN (15:21)
[2020-11-04 16:32] VITALS: BP 128/78
[2020-11-04] MEDS ORDERED: INSULIN GLARGINE 100 UNITS/ML VIAL SQ SCH (21:00)
== END 2020-11-04 19:10 | disposition home health service (06) | DRG 872 ==
LOC: ER 17:26 → ERHOLD 20:15 → MED/SURG2 10-31 10:23
PROVIDERS: ADMIT Internal Medicine; ATTEND Internal Medicine
PROC: 02HV33Z Insertion of Infusion Device into Superior Vena Cava, Percutaneous Approach (ICD-10-PCS; principal; 2020-10-30)
DX: A41.9 Sepsis, unspecified organism (principal); N12 Tubulo-interstitial nephritis, not specified as acute or chronic; E66.01 Morbid (severe) obesity due to excess calories; Z68.30 Body mass index [BMI] 30.0-30.9, adult; G30.9 Alzheimer's disease, unspecified; F02.80 Dementia in other diseases classified elsewhere, unspecified severity, without behavioral disturbance, psychotic disturbance, mood disturbance, and anxiety; Z74.01 Bed confinement status; I11.0 Hypertensive heart disease with heart failure; I50.9 Heart failure, unspecified; J44.9 Chronic obstructive pulmonary disease, unspecified; Z09 Encounter for follow-up examination after completed treatment for conditions other than malignant neoplasm; Z86.73 Personal history of transient ischemic attack (TIA), and cerebral infarction without residual deficits; Z87.440 Personal history of urinary (tract) infections; E78.5 Hyperlipidemia, unspecified; Z95.1 Presence of aortocoronary bypass graft; Z88.8 Allergy status to other drugs, medicaments and biological substances; R65.20 Severe sepsis without septic shock; Z87.891 Personal history of nicotine dependence; Z79.84 Long term (current) use of oral hypoglycemic drugs; E11.42 Type 2 diabetes mellitus with diabetic polyneuropathy; B96.20 Unspecified Escherichia coli [E. coli] as the cause of diseases classified elsewhere
CPT/HCPCS: 36415; 36569; 51700; 71045; 74177; 80048; 80053; 81001; 82550; 82553; 82948; 83036; 83605; 83880; 84484; 85025; 87040; 87086; 87186; 93005; 96372; 97139; 99285; J0692; J0696; J1200; J1644; J1815; J2543; J2765; J7030; Q9967; U0002